=== PATIENT | female | born 1975 | race African-American/Black ===

== ENCOUNTER 2025-01-27 09:34 | Outpatient (CLI) | payer OTHER, SELFPAY ==
--- OUTSIDE RECORDS SUMMARY | 2025-01-27 10:19 | XMS_ITS | Clinical Summary ---
Author Organization [facility] [employer] Address [address] [facility] [place] [address] Care Team Providers Care Die Cast Technician Name Role Phone Pedro Cavazos MD Primary Care Provider [phone] Source Comments [facility]-audrain medical center Affiliates and Associated Physician Practices is amultiple site organization consisting of ambulatory clinics and hospital sitesin [place], [place], [place] and [place]. This disclosure is being madepursuant to the Care Everywhere program and may not contain all information available regarding this patient. Last updated 18.[facility] [employer] Allergies Active Allergy Reactions Criticality Noted Date Comments Lidocaine Anaphylaxis High 11/13/2014 Medications * Be aware that medications may not be up to date on this document. Alwaysverify current medications with the patient. amLODIPine (NORVASC) 10 MG tablet Take 10 mg by mouth once daily Active ferrous sulfate 325 (65 FE) MG tablet Take by mouth once daily Active calcium carbonate (CALCI-CHEW) 1250 (500 Ca) MG chew tablet Take 1 tablet by mouth once daily Active Cholecalciferol 25 MCG (1000 UT) Take 1,000 Units by mouth once daily Active Family History Medical History Relation Name Comments Cancer - Ovarian Mother Relation Name Status Comments Mother Social History Tobacco Use Types Packs/Day Years Used Date Smoking Tobacco: Never Smokeless Tobacco: Never Tobacco Cessation:Counseling Given: Yes Comments No Sex and Gender Information Value Date Recorded Sex Assigned at Not on file Legal Sex Female 5:19 PM CDT Gender Identity Not on file Sexual Orientation Not on file Last Filed Vital Signs Vital Sign Reading Time Taken Comments Blood Pressure 130/86 09/07/2020 5:53 PM CDT Pulse 61 09/07/2020 5:53 PM CDT Temperature 36.8 C (98.3 F) 09/07/2020 5:53 PM CDT Respiratory Rate 18 09/07/2020 5:53 PM CDT Oxygen Saturation 100% 09/07/2020 5:53 PM CDT Inhaled Oxygen Concentration - - Weight 85.7 kg (189 lb) 09/07/2020 5:53 PM CDT Height 165.1 cm (5' 5) 09/07/2020 5:53 PM CDT Body Mass Index 31.45 09/07/2020 5:53 PM CDT Plan of Treatment Health Maintenance Due Date Last Done Comments COLOGUARD (AGES 45-75) - COL ON CA SCREENING 1976 COLON MONITORING 1976 COLONOSCOPY - COLON CA SCREENING 1976 CT COLONOGRAPHY - COLON CA SCREENING 1976 Colorectal Cancer Screening 1976 FIT - COLON CA SCREENING 1976 FLEX SIG - COLON CA SCREENING 1976 LIPID TESTING 1976 MAMMOGRAM 1976 HIV SCREENING 1991 HEPATITIS C SCREENING 04/18/1994 DTAP/TDAP/TD VACCINES (1 - Tdap) 1995 HEPATITIS B VACCINE (1 of 3 - 19+ 3-dose series) 1995 SCREENING FOR DIABETES 09/07/2020 COVID-19 VACCINE (2 - 2023-2 5 season) 2024 08/31/2020 DEPRESSION SCREENING 06/05/2024 INFLUENZA VACCINE (#1) 2025 ZOSTER VACCINE (1 of 2) 2026 HIB VACCINE Aged Out No longer eligi ble based on patient's age to complete this topic HPV VACCINE Aged Out No longer eligi ble based on patient's age to complete this topic MENINGOCOCCAL (Group B) VACC INE SHARED DECISION-MAKING Aged Out No longer eligibl e based on patient's age to complete this topic MENINGOCOCCAL GROUPS A/C/Y/W VACCINE Aged Out No longer eligible b ased on patient's age to complete this topic PNEUMOCOCCAL VACCINE Aged Out No long er eligible based on patient's age to complete this topic Insurance [employer] Care Teams Die Cast Technician Relationship Specialty Start Date End Date Pedro Cavazos MD [address] [place] [address] [address] [place] [address] PCP - General Internal Medicine 09/07/20
--- OUTSIDE RECORDS SUMMARY | 2025-01-27 10:19 | XMS_ITS | Encounter Summary ---
Author Organization [facility] Address [address] [place] [address] Care Team Providers Care Cutter Finisher Name Role Phone Pedro Cavazos MD Primary Care Provider [phone] Encounter Details Date Type Department Care Team (Late st Contact Info) Description 11/01/[address] [address] Kenny Victor MD [address] [place] [id number] Social History Tobacco Use Types Packs/Day Years Used Date Smoking Tobacco: Never Alcohol Use Standard Drinks/Week Comments No 0 (1 standard drink = 0.6 oz pur e alcohol) Comments No Sex and Gender Information Value Date Recorded Sex Assigned at Not on file Legal Sex Female 2:47 PM LACE PINNER Gender Identity Not on file Sexual Orientation Not on file documented as of this encounter Plan of Treatment Not on file documented as of this encounter Visit Diagnoses Not on filedocumented in this encounter Care Teams Cutter Finisher Relationship Specialty Start Date End Date Pedro Cavazos MD [facility] [place] [address] PCP - General Internal Medicine 08/02/16 documented as of this encounter
--- OUTSIDE RECORDS SUMMARY | 2025-01-27 10:19 | XMS_ITS | Clinical Summary ---
Author Organization [facility] Address [address] [place] [address] Care Team Providers Care Double Back Operator Name Role Phone Pedro Cavazos MD Primary Care Provider [phone] Allergies Active Allergy Reactions Criticality Noted Date Comments Lidocaine Throat swelling 09/12/2017 Medications amlodipine 10 MG tablet Take 10 mg by mouth daily. Active ferrous sulfate, 65 mg elemental, 325 (65 FE) MG tablet Take 325 mg by mouth daily with breakfast. Active Cholecalciferol (VITAMIN D) 1000 UNIT tablet Take 1,000 Units by mouth daily. Active Cyanocobalamin (VITAMIN B 12) 100 MCG Lozenge Acti ve omeprazole 20 MG capsule Take 20 mg by mouth daily. Active aspirin 81 MG chewable tablet Chew 81 mg by mouth daily. Active Active Problems No known active problems Immunizations Immunization Administration Dates Next Due Tdap (Boostrix) 09/11/2020 Family History Medical History Relation Comments Hypertension Mother Relation Status Comments Father Alive Mother Alive Social History Tobacco Use Types Packs/Day Years Used Date Smoking Tobacco: Never Smokeless Tobacco: Never Alcohol Use Standard Drinks/Week Comments Yes 0 (1 standard drink = 0.6 oz pur e alcohol) socially Comments No Sex and Gender Information Value Date Recorded Sex Assigned at Not on file Legal Sex Female 3:07 AM CDT Gender Identity Not on file Sexual Orientation Not on file Last Filed Vital Signs Vital Sign Reading Time Taken Comments Blood Pressure 138/115 11/22/2021 7:07 PM CDT Pulse 108 11/22/2021 7:07 PM CDT Temperature 36.7 C (98.1 F) 11/22/2021 7:07 PM CDT Respiratory Rate 16 11/22/2021 7:0 7 PM CDT Oxygen Saturation 100% 11/22/2021 7:07 PM CDT Inhaled Oxygen Concentration - - Weight 82.4 kg (181 lb 10.5 oz) 11/22/2021 7:07 PM CDT Height 166.4 cm (5' 5.5) 11/22/2021 7:07 PM CDT Body Mass Index 29.77 11/22/2021 7:07 PM CDT Plan of Treatment Health Maintenance Due Date Last Done Comments Colorectal Cancer Screening Colonoscopy (10 Years) 1976 Annual Physical 1979 Hepatitis C 1994 Hepatitis B Vaccines (1 of 3 - 19+ 3-dose series) 1995 Mammogram Screening 2016 COVID-19 Vaccine (2023-2 5 season) 2024 03/05/2021, 10/01/2020, 08/31/2020 DTaP, Tdap and Td Vaccines ( 3 - Td or Tdap) 09/11/2030 09/11/2020, 09/11/2020, 11/13/2014 Meningococcal B Vaccine Aged Out No l onger eligible based on patient's age to complete this topic Meningococcal Vaccine Aged Out No rashard yun eligible based on patient's age to complete this topic Pneumococcal Vaccine: Pediatrics (0 to 5 Years) and At-Risk Patients (6 to 49 Years) Aged Out No longer eligible b ased on patient's age to complete this topic RSV Immunizations Under 20 Months Aged Out No longer eligible b ased on patient's age to complete this topic Insurance [facility] [employer]IM[employer]SEMENTS OF [place] Advance Directives Documents on File Type Date Recorded Patient Oil Lease Operator Expl anation Legal Documents 07/18/2022 4:13 PM COMPLET ED ALLSTATE BILLING REQ Care Teams Double Back Operator Relationship Specialty Start Date End Date Pedro Cavazos MD [facility] [facility] [address] [place] [address] PCP - General INTERNAL MEDICINE 09/12/17
--- OUTSIDE RECORDS SUMMARY | 2025-01-27 10:19 | XMS_ITS | Clinical Summary ---
Author Organization [facility] Address [address] [place] [address] Care Team Providers Care Teacher Resource Name Role Phone Kenny Victor MD Unavailable [phone] Chino Simmons MD Unavailable [phone] Nohemi Glass MD Primary Care Provider [phone] Allergies Active Allergy Reactions Criticality Noted Date Comments Lidocaine Anaphylaxis High 11/13/2014 Nsaids (Non-Steroidal Anti-Inflammatory Drug) Other (See comments) Low 07/29/2021 Bariatric surgery Medications ferrous sulfate 325 mg (65 mg of elemental iron) tabletIndication s:Iron Deficiency Anemia Take 1 tablet (325 mg total) by mouth nightly Active acetaminophen (TYLENOL) 500 mg tablet Take 2 tablets (1,000 mg total) by mouth every 6 (six) hours as needed for pain 60 tablet 0 Active calcium carbonate (TUMS) 500 mg calcium (1,250 mg) chewable tablet Take 1 tablet by mouth daily Active cholecalciferol (VITAMIN D-3) 25 mcg (1,000 unit) tablet Take 1 tablet (1,000 Units total) by mouth daily Active phentermine (ADIPEX-P) 37.5 mg tablet Take 1 tablet (37.5 mg total) by mouth daily 0 2 Active multivitamin capsule Take 1 capsule by mouth daily Active amLODIPine (NORVASC) 2.5 mg tabletIndication s:hypertension Take 1 tablet (2.5 mg total) by mouth every morning 90 tablet [address] (PROTONIX) 20 mg EC tabletIndication s:Stress Ulcer Prophylaxis Take 1 tablet (20 mg total) by mouth nightly 90 tablet 3 2 Active cyclobenzaprine (FLEXERIL) 10 mg tablet Take 10 mg by mouth 3 (three) times a day as needed 2 Active montelukast (SINGULAIR) 10 mg tablet 3 Active estradioL (CLIMARA) 0.0375 mg/24 hrIndications:Va somotor symptoms due to menopause Place 1 patch on the skin once a week for 7 days Patient needs appt for additional refills 4 patch 5 Active Active Problems Problem Noted Date Diagnosed Date COVID 07/28/2021 Iron deficiency anemia 12/11/2018 History of sleeve gastrectomy 11/22/2018 DDD (degenerative disc disease), cervical 2018 DDD (degenerative disc disease), lumbar 11/23/19 19 Sinusitis 05/31/2017 Gastroesophageal reflux disease without esophagi tis 11/14/2016 Heart murmur 09/14/2016 Hypertrophy of tonsils 09/14/2016 Vitamin D deficiency 05/15/2015 Leukopenia 05/15/2015 Cold hands 11/13/2014 Hypertension 11/13/2014 Obesity 11/13/2014 Resolved Problems Problem Noted Date Diagnosed Date Resolved Date Abnormal uterine bleeding (AUB) 04/03/2019 08/05/2019 Overview (04/03/2019): Added automatically from request for surgery [id number] Uterine fibroid 11/22/2018 08/05/2019 Immunizations Immunization Administration Dates Next Due DTaP 5 Pertussis 09/11/2020 Influenza, Quadrivalent, Spl it, Preservative Free, Intramuscular 05/25/2019(Deferred: Patient Refused - patient didn't want flu vaccine) Influenza, Trivalent, IM (MDV) 03/05/2021 Moderna SARS-CoV-2 Monovalen t Vaccination (12+ YRS) 03/05/2021,10/01/2020,08/31/2020 Tdap 09/11/2020,11/13/2014 Surgical History Surgery Date Site/Laterality Comments NE OCCLUSION FLP TUBE DEV VAG/SUPRAPUBIC APPR Oviductal Surgery Tubal Occlusion By Device - (Added by TW Conv) NE LIG/TRNSXJ FLP TUBE ABDL/VAG APPR UNI/BI Tubal Ligation - (Added by TW Conv) SLEEVE GASTROPLASTY 06/05/2016 - 06/04/2017 NE SOTO W/O FACETEC FORAMOT/DSC 06/06 VRT SGM CRV 06/05/2012 - 06/04/2013 Laminectomy Lumbar - Hardware in back (Added by TW Conv) TUBAL LIGATION 06/05/2004 - 06/04/2005 HYSTERECTOMY 06/05/2018 - 06/04/2019 LAPAROSCOPIC HYSTERECTOMY Medical History Medical History Date Comments Personal history of other sp ecified conditions History of chest pain - Stre ss test negative early 2014. (Added by TW Conv) Other cervical disc degenera tion, unspecified cervical region DDD (degenerative disc dis ease), cervical - (Added by TW Conv) Other intervertebral disc degeneration, lumbar region DDD (degenerative disc dis ease), lumbar - (Added by TW Conv) Personal history of other sp ecified conditions History of breast lump - Mahi mogram with U/S negative 06/20 (Added by TW Conv) Hypertrophy of uterus Enlarged u terus - Fibroids by u/s 06/20 (Added by TW Conv) Hypertension Abnormal uterine bleeding Heavy menses GERD (gastroesophageal reflux disease) Abnormal uterine bleeding (AUB) 04/03/2019 Added automatically from request for surgery [id number] Uterine fibroid 11/22/2018 Family History Medical History Relation Name Comments Hypertension Brother Heart failure Father Family history of congestive heart failure - (Added by TW Conv) Endometrial cancer Mother Heart failure Mother Family history of congestive heart failure - (Added by TW Conv) Hypertension Mother Family history of hypertension - (Added by TW Conv) Ovarian cancer Mother Obesity Sister Relation Name Status Comments Brother Alive Father Alive Mother Sister Social History Tobacco Use Types Packs/Day Years Used Date Smoking Tobacco: Never Smokeless Tobacco: Never Tobacco Cessation:Counseling Given: Not Answered Alcohol Use Standard Drinks/Week Comments Yes 2 (1 standard drink = 0.6 oz pur e alcohol) Humiliation, Afraid, Rape, and Kick questionnair e Answer Date Recorded Within the last year, have y ou been afraid of your partner or ex-partner? No 08/20/2019 Within the last year, have y ou been humiliated or emotionally abused in other ways by your partner or ex-partner? No Within the last year, have y ou been kicked, hit, slapped, or otherwise physically hurt by your partner or ex-partner? No 08/20/2019 Within the last year, have y ou been raped or forced to have any kind of sexual activity by your partner or ex-partner? No 08/20/2019 Social Connection and Isolation Panel Answer Date Recorded Frequency of Communication with Friends and Fami ly Not on file 08/20/2019 Frequency of Social Gatherings with Friends and Family Not on file 08/20/2019 Attends Congregational Services Not on file 08/19 Active Member of Clubs or Organizations Not on f ile 08/20/2019 Attends Club or Organization Meetings Not on shaheen e 08/20/2019 Are you , , di vorced, , never , or living with a partner? 08/20/2019 AUDIT-C Answer Date Recorded Q1: How often do you have a drink containing alc ohol? Monthly or less 08/30/2023 Average Number of Drinks Not on file 024 Q3: How often do you have si x or more drinks on one occasion? Never 08/30/2023 PHQ-2 Answer Date Recorded PHQ-2 Total Score (If total score is 3 or more points, staff should administer the PHQ-9) 0 07/29/2021 Exercise Vital Sign Answer Date Recorde d Days of Exercise per Week 3 days 2018 Minutes of Exercise per Session 50 min 04/26/2019 Comments No Sex and Gender Information Value Date Recorded Sex Assigned at Not on file Legal Sex Female 5:51 AM SEMICONDUCTOR PROCESSING TECHNICIAN Gender Identity Not on file Sexual Orientation Not on file Obstetrics History Para Term AB IAB SAB Ectopic Multiple Livin g Live Births 2 2 2 2 2 Date Outcome GA Total Labor Labor/2nd/3rd Weight Sex Type Anes PTL Nilda A1 A5 Name Clin Term F Vag-S pont Living Term M Vag-S pont Living Comments LMP: 04/30/2019 Last Filed Vital Signs Vital Sign Reading Time Taken Comments Blood Pressure 138/82 08/30/2023 4:32 PM CDT Pulse 72 11/25/2021 3:36 PM CDT Temperature 36.9 C (98.4 F) 11/25/2021 3:36 PM CDT Respiratory Rate 16 10/05/2021 3:24 PM CDT Oxygen Saturation 99% 11/25/2021 3:36 PM CDT Inhaled Oxygen Concentration - - Weight 83.5 kg (184 lb) 02/03/2024 10:44 AM CDT Height 165.1 cm (5' 5) 02/03/2024 10:44 AM CDT Body Mass Index 30.62 02/03/2024 10:44 AM CDT Plan of Treatment Health Maintenance Due Date Last Done Comments Colon Cancer Screening-Colonoscopy 1976 Hepatitis B Screening 1994 Depression Screening 07/29/2022 07/29/2021, 11/23/19 19 Covid-19 Vaccine ( season) 2024 03/05/2021, 10/01/2020, 08/31/2020 Regular Well Visit/Exam 18-64 08/29/2024 08/30/2023, 09/02/2021, 07/29/2021, Additional history exists Breast Cancer Screening-Mammogram 02/02/2025 02/03/2024, 06/25/2022, 09/12/2020, Additional history exists Influenza Vaccine (#1) 2025 03/05/2021 DTaP/Tdap/Td Vaccine (4 - Td or Tdap) 09/11/2030 09/11/2020, 09/11/2020, 11/13/2014 Cervical Cancer Screening Discontinued 05/15/2019, 06/2015 Hepatitis C Screening Completed 07/29/2021 Pneumococcal vaccine <65 Aged Out No longer eligible based on patient's age to complete this topic Procedures Procedure Name Priority Date/Time Associated Diagnosis Comments SCREENING MAMMOGRAM BILATERAL W RASHI Schedule Routine, Read Routine (OP Routine) 02/03/2024 10:51 AM CDT Encounter for screening mammogram for malignant neoplasm of breast HEPATITIS C ANTIBODY Routine 07/29/2021 1:15 PM SEMICONDUCTOR PROCESSING TECHNICIAN Preventative health care Need for hepatitis C screening test HM PAP SMEAR WITH HPV Routine 05/15/2019 from Last 3 Months or Most Recently Relevant to Health Maintenance Results * Screening Mammogram Bilateral W Rashi (02/03/2024 10:51 AM CDT) Anatomical Region Laterality Modality Breast Bilateral Mammography Impressions 02/06/2024 8:40 AM CDT BI-RADS ATLAS category (overall): 1 - Negative There is no mammographic evidence of malignancy. A 1 year screening mammogram is recommended. The patient has been or will be contacted. We recommend annual screening mammography for women at average risk of breast cancer beginning at age 40, based on guidelines of the [employer] (ACR Practice Parameter for the Performance of Screening and Diagnostic Mammography) and [employer]. For women with and elevated risk of breast cancer, please refer to the ACR Practice Parameter for specific screening recommendations. The patient will be entered into a reminder system with a target due date of 1 year for her next screening exam. Narrative 02/06/2024 8:40 AM CDT Screening Mammogram Bilateral W Rashi: 02/03/24 The study was acquired using full field digital technology and interpreted from soft copy. 2D digital mammographic views, as well as 3D digital tomosynthesis were performed in the CC and MLO projections. CLINICAL: Encounter for screening mammogram for malignant neoplasm of breast. No relevant medical history has been documented for this patient. No known family history of breast cancer. COMPARISONS: 08/18/2022 Diagnostic Mammogram Left W Rashi 06/25/2022 Screening Mammogram Bilateral W Rashi 09/12/2020 Screening Mammogram Bilateral W Rashi 07/12/2019 Screening Mammogram Bilateral W Rashi 09/18/2017 Screening Mammogram 2D Bilateral 07/01/2015 DIAGNOSTIC MAMMOGRAM BILATERAL W RASIH 07/01/2015 US Breast Limited BREAST TISSUE: There are scattered areas of fibroglandular density. FINDINGS: No suspicious masses, suspicious calcifications, or other suspicious findings are seen within either breast. There has been no suspicious change. Nohemi Glass MD IMG MAMMO PROCEDURES Final Result * Hepatitis C antibody (07/29/2021 1:15 PM SEMICONDUCTOR PROCESSING TECHNICIAN) Hep C Ab Nonreactive Nonreactive [facility] Comment:Antibodies to HCV no t detected. Does NOT exclude the possibility of recent exposure to HCV. Blood 07/29/2021 1:15 PM SEMICONDUCTOR PROCESSING TECHNICIAN 07/29/2021 3:44 PM SEMICONDUCTOR PROCESSING TECHNICIAN Pedro Cavazos MD LAB MICROBIOLOGY - GENER AL ORDERABLES Edited Result - Final [facility] Department [place] [address] * PAP SMEAR WITH HPV (05/15/2019) Pap smear Normal Historical Provider HEALTH MAINTENANCE Final Result from Last 3 Months or Most Recently Relevant to Health Maintenance Insurance [place] [id number] [place] [address] [place] [address] [employer] - [place] [id number] Advance Directives For more information, please contact: [phone] * Full Code (Latest Code Status on File) Date Activated Date Inactivated Comments 05/24/2019 5:20 PM 05/25/2019 6:29 PM Care Teams Teacher Resource Relationship Specialty Start Date End Date Nohemi Glass MD [address] [facility] [address] [place] [address] PCP - General Internal Medicine 12/14/22 Kenny Victor MD Referring Physician General Surgery 11/22/18 Chino Simmons MD [address] [facility] [id number] [place] [address] Consulting Physician Obstetrics and Gynecology 09/26/20
--- OUTSIDE RECORDS SUMMARY | 2025-01-27 10:19 | XMS_ITS | Clinical Summary ---
Author Organization [facility] Address [address] [place] [address] Phone Care Team Providers Care Interior Decorator Painting Name Role Phone Pedro Cavazos MD Primary Care Provider [phone] [phone] Allergies Active Allergy Reactions Criticality Noted Date Comments Lidocaine Anaphylaxis High 08/02/2016 Medications amLODIPine (NORVASC) 2.5 mg tablet Take 2.5 mg by mouth daily. Active ondansetron (ZOFRAN ODT) 4 mg Tablet, Rapid DissolveIndicati ons:nauesa Place 1 Tablet (4 mg) under tongue every 6 hours as needed for Nausea/Emes is. 10 Tablet 11/15/2016 1:21 PM CDT 11/15/2016 Active HYDROcodone-acet aminophen (HYCET) 7.5-325 mg/15 mL SolutionIndicati ons:pain Take 15 mL by mouth every 6 hours as needed for Pain, Severe (severe pain 5-10). Max Daily Amount: 60 mL 360 mL 11/15/2016 Active Active Problems Problem Noted Date Diagnosed Date Post-operative nausea and vomiting 11/15/2016 Post-op pain 11/15/2016 Gastroesophageal reflux disease without esophagi tis 11/14/2016 Recurrent major depressive disorder, in full rem ission 11/14/2016 Family History Medical History Relation Name Comments Hypertension Father Hypertension Mother Relation Name Status Comments Father Mother Social History Tobacco Use Types Packs/Day Years Used Date Smoking Tobacco: Never Alcohol Use Standard Drinks/Week Comments No 0 (1 standard drink = 0.6 oz pur e alcohol) Comments No Sex and Gender Information Value Date Recorded Sex Assigned at Not on file Legal Sex Female 2:47 PM BEESWAX BLEACHER Gender Identity Not on file Sexual Orientation Not on file Last Filed Vital Signs Vital Sign Reading Time Taken Comments Blood Pressure 140/82 11/15/2016 3:50 PM CDT Pulse 60 11/15/2016 11:45 AM CDT Temperature 36.6 C (97.8 F) 11/15/2016 11:45 AM CDT Respiratory Rate 16 11/15/2016 11:45 AM CDT Oxygen Saturation 100% 11/15/2016 11:45 AM CDT Inhaled Oxygen Concentration - - Weight 117.9 kg (260 lb) 11/15/2016 5:00 AM CDT Height 165.1 cm (5' 5) 11/14/2016 2:30 PM CDT Body Mass Index 43.27 11/14/2016 2:30 PM CDT Plan of Treatment Health Maintenance Due Date Last Done Comments DTAP/TDAP/TD VACCINES (1 - Tdap) 1995 HEPATITIS B VACCINES (1 of 3 - 19+ 3-dose series) 04/05 HPV/Cotest (21-29) 1997 CERVICAL CANCER SCREENING 2006 HPV/Cotest (30-65) 2006 PAP SMEAR 2006 BREAST CANCER SCREENING 2016 COLORECTAL SCREENING 2021 Colorectal Cancer Screening 2021 FIT-DNA Q 3 years 2021 FIT/FOBT Q 1 year 2021 Flex Sig/CT Colonography Q 5 years 2021 INFLUENZA VACCINE (#1) 2025 Medical Devices Implanted Type Area Resource Analyst Device Identifier Shelf Expiration Date Model / Serial / Lot Seamguard Endogia 60 Blck [id number] - [id number] Implanted:Qty : 2 on 11/14/2016 by Kenny Victor MD at [facility] Biological N/A: Stomach [employer] 05/04/2019 [id number] / / [id number] Seamguard Endogia 60 Prpl [id number] - [id number] Implanted:Qty : 2 on 11/14/2016 by Kenny Victor MD at [facility] Biological N/A: Stomach [employer] 05/04/2019 [id number] / / [id number] Lumbar Cage Insurance [facility] OPTIONS PPO [id number] [employer] O OPEN ACCESS RX OPTUM RX Member Subscriber Plan / Payer (Ef fective for All Dates) Name:Mohini Waterman Relation to Subscriber:Self Name:Mohini Waterman Payer ID:Not on file Group ID:[facility] Type:RX Commercial Address: [address] Advance Directives For more information, please contact: [phone] * Full Code (Latest Code Status on File) Date Activated Date Inactivated Comments 11/14/2016 2:35 PM 11/15/2016 6:29 PM * Full Code Date Activated Date Inactivated Comments 11/14/2016 9:29 AM 11/14/2016 2:35 PM * Full Code Date Activated Date Inactivated Comments 08/05/2016 8:38 AM 08/05/2016 12:55 PM Care Teams Interior Decorator Painting Relationship Specialty Start Date End Date Pedro Cavazos MD [address] [place] [address] PCP - General Internal Medicine 08/02/16
--- OUTSIDE RECORDS SUMMARY | 2025-01-27 10:19 | XMS_ITS | Clinical Summary ---
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 Gender Identity Not on file Sexual Orientation Not on file Plan of Treatment Health Maintenance Due Date Last Done Comments Hepatitis C Virus (HCV) Screening 1976 Hepatitis B Immunization (1 of 3 - 19+ 3-dose series) 1995 Pap Smear 1997 Cervical Cancer Screening (CCS) 2006 HPV/Cotest 2006 Cologuard 2021 Colonoscopy 2021 Colorectal Cancer Screening 2021 Immunochemical Fecal Occult Blood 2021 SARS-COV-2 Immunization ( season) 2024 04/21/2021, 09/28/2020, 08/31/2020 Influenza Immunization (#1) 2025 04/21/2021 Respiratory Syncytial Virus (RSV) Immunization (Adult) (1 - 1-dose 75+ series) 2051 DTaP/Tdap/Td Immunization Discontinued 09/11/2020 TdaP Immunization Completed 09/11/2020 Human Papillomavirus (HPV) Immunization Aged Out No longer eligible based on patient's age to complete this topic Meningococcal Immunization (ACWY) Aged Out No longer eligible based on patient's age to complete this topic Pneumococcal Immunization Combined Aged Out No longer eligible based on patient's age to complete this topic Rotavirus Immunization Aged Out No lo nger eligible based on patient's age to complete this topic
[2025-01-27 10:29] LABS: Hematocrit 35.1 % (37.0-47.0); Hemoglobin 11.5 g/dL (12.0-15.0); Mean Corpuscular HGB Conc 32.8 g/dl (32-36); Mean Corpuscular Hemoglobin 32.9 pg (26-34); Mean Corpuscular Volume 100.3 fl (80-100); Platelet Count Result 168 k/mm3 (150-375); Red Blood Count 3.50 M/mm3 (4.2-5.4); White Blood Count 2.8 K/mm3 (4.5-10.0)
[2025-01-27 10:53] LABS: Iron 102 ug/dL (37-170)
[2025-01-27 10:57] LABS: Albumin Level 3.9 g/dL (3.5-5.1); Anion Gap 5 mmol/L (4-12); Blood Urea Nitrogen 18 mg/dL (7-17); Calcium 8.9 mg/dL (8.4-10.2); Carbon Dioxide 28 mmol/L (22-30); Chloride 105 mmol/L (98-107); Estimated Glomerular Filt Rate > 60; Glucose 96 mg/dL (65-110); Potassium 3.9 mmol/L (3.4-5.0); Sodium 138 mmol/L (137-145)
[2025-01-27 11:04] LABS: Prealbumin 36.7 mg/dL (17.6-36.0)
== END 2025-01-27 09:35 | disposition home or self-care (01) ==
PROVIDERS: PCP Internal Medicine; Visit Provider Surgery Plastic and Reconstructive Surgery
DX: R63.4 Abnormal weight loss (principal)
CPT/HCPCS: 36415; 80048; 82040; 83540; 84134; 85027

== ENCOUNTER 2025-04-11 01:00 | Day surgery (SDC) | payer OTHER, SELFPAY ==
--- NOTE | 2025-04-07 09:27 | SUR.PREOP ---
[facility] has started construction of its new state of the art ER which will open Spring 2026. With this, we anticipate parking may be a challenge for some our surgical patients and families. Parking spaces are limited but are available for all Surgical, obstetrics, and ER patients sharing this lot. If you arrive and find you are having a hard time finding a parking space, please note that we understand the challenges, please drive around the hospital and park near Hospital Entrance 1. When you enter this entrance, you can ask a volunteer to direct or take you back to the surgical waiting area to check in. We appreciate everyone?s understanding of these expected challenges while we build for your future. Report to the Outpatient Waiting Room, entrance under the green pavilion located off [address], at time __6AM__ on date _04/11/25_. Planned Procedure Time: _730AM__. Time changes happen often and if your time is changed the preop area will call you the afternoon before. - You and your visitor will be asked to self-screen and do not enter if you have any COVID symptoms. Please call surgeon if you need to reschedule. - A mask is optional within the hospital at this time. Patients may have clear liquids (water, carbonated beverages, clear teas, apple juice) until 3 hours prior to surgery with a maximum of 20 ounces. - No food from midnight until time of surgery and no smoking, or chewing tobacco (or any form of nicotine). No chewing gum, candy or mints. . Take only the following medications with a SIP of water on the morning of surgery: __Amlodipine__ DO NOT STOP ANY OF YOUR OTHER PRESCRIPTION MEDICATIONS PRIOR TO SURGERY EXCEPT THE FOLLOWING Hold all vitamins and supplements for 3 days per anesthesiologist. Medications to hold per physician __tirezepatide x10 days__ Date to take last dose of vitamins-now 04/07/25__ Please no make-up, nail sami, hairspray, perfume, deodorant, or body powder the day of surgery.? No jewelry (including any body piercings) or valuables the day of surgery, leave them at home.? Please take a shower or bath the night before, or the morning of, surgery with an antibacterial soap.? Wear comfortable, loose fitting clothing.? - Jewelry must be removed prior to entering the operating room.? Rings and piercings that are not removed may be cut off. - The hospital will not accept responsibility for valuables.? - Please leave all valuables, including medications, at home the day of surgery. If you are going home after surgery, a licensed recycling collections driver must drive you home.? - NO public transportation without another adult if you receive anesthesia. - We recommend that an adult stay with you for 24 hours following discharge. - We also recommend that you do not drive, make important decision, drink alcoholic beverages, or take any drugs that were not prescribed by your health care provider for at least 24 hours after your discharge time. For Pediatric surgeries, we recommend two adults accompany the child home. Follow any additional instructions given to you from your surgeon. Telephone instructions given to _Mohini_and asked if any additional questions and then verbalized understanding. Patient advised to call surgeon office or pre surgery nurse liaison [phone] if any additional questions.
[2025-04-07 09:36] VITALS: BMI 31.6
[2025-04-11] VITALS (10 sets, daily range): BP systolic 111–155; BP diastolic 66–89; PULSE 64–96; RESP 10–16; TEMP 36.2–36.5; O2SAT 92–100; BMI 31.5
--- OUTSIDE RECORDS SUMMARY | 2025-04-11 01:02 | XMS_ITS | Encounter Summary ---
Author Organization [facility] Address [address] [place] [address] Care Team Providers Care Sterile Processing Technologist Name Role Phone Pedro Cavazos MD Primary Care Provider [phone] Encounter Details Date Type Department Care Team (Late st Contact Info) Description 11/01/[address] [address] [place] [address] [facility] [address] [place] [address] Social History Tobacco Use Types Packs/Day Years Used Date Smoking Tobacco: Never Alcohol Use Standard Drinks/Week Comments No 0 (1 standard drink = 0.6 oz pur e alcohol) Comments No Sex and Gender Information Value Date Recorded Sex Assigned at Not on file 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
--- OUTSIDE RECORDS SUMMARY | 2025-04-11 01:02 | XMS_ITS | Data Portability ---
Author Organization [facility] OFF[facility] Address [address] [place] [address] Care Team Providers Care Cuffing Machine Operator Name Role Phone DONNA NDIAYE Primary Care Provider [phone] Assessment No assessment recorded. Plan of Treatment Reminders Order Date Submit Date Provider Last Modified By Organization Details Last Modified Time Details Appointments ESTABLISH ED PATIENT DETAILED 2024 08:45A M Devon De La Cruz i, MD Not available Not available Not available Lab None recorded. Referral None recorded. Procedures None recorded. Surgeries None recorded. Imaging electroca rdiogram 2024 025 Not available 10/29/2024 09:12:23 electroca rdiogram 2024 025 Not available 08/22/2024 14:36:05 Medication Orders rosuvasta tin 10 mg tablet 2024 025 [id number], [address], [address], 10/12/2024 09:58:18 Patient TargetsNo targets recorded. Patient InstructionsNo instructions recorded. Reason for Referral None Reported. Results Created Date Observation Date Name Description Value Unit Range Abnormal Flag Note LastModifiedBy Organization Detail LastModifiedTime 07/29/1901/05/2024 koki galeano am No observ ation record ed. [email or web address] Not Available 2024 17:46:04 07/29/19 25 12/16/2022 , luisito martinez s, lower extre mity No observ ation record ed. [email or web address] Not Available 2024 17:47:59 08/08/19 25 08/06/2024 elect senthil monterogr am No observ ation record ed. [email or web address] Not Available 2024 10:12:06 08/27/19 25 08/22/2024 US, echoc ardio gram No observ ation record ed. [email or web address] [facility] [address], [place], [address], 10/24/2024 10:12:02 10/10/19 25 09/28/2024 exerc ise stres s test No observ ation record ed. [email or web address] Not Available 2024 14:31:04 Result Notes None recorded. Problems Name Problem SNOMED Code Status Onset Date Resolution Date Notes Provider Name and Address Organization Details Recorded Time Electrocardiog sp abnormal 363681132 Active 2022 Hector Alaniz null, [place] - [facility] 07:33:25 Benign hypertension 34672119 Active 2022 Young Mesto null, [place] - [facility] 07:42:45 Family history of diabetes mellitus 682378842 Active 2022 Hector Mesto [place], [place] - [facility] 07:33:25 Chronic constipation 216834262 Active 2022 Young Mesto [place], [place] - [facility] 07:33:25 Gastroesophage al reflux disease without esophagitis 575962456 Active 2022 Hector Mesto [place], [place] - [facility] 07:33:25 Iron deficiency 14616873 Active 2022 Yuong Mesto null, [place] - [facility] 07:33:25 Family history of malignant neoplasm of ovary 599264159 Active 2022 Young Mesto null, [place] - [facility] 07:33:25 History of bariatric surgical procedure 055072372 Active 2022 Hector Mesjessica null, [place] - [facility] 07:33:25 Vitamin D deficiency 73052553 Active 2022 [facility] 07:33:25 Body mass index 30+ - obesity 614892225 Active 2022 [facility] 07:33:25 Problem Notes None recorded. Procedures Surgical History Date Name Laterality Status Provider Name and Address Organization Details Recorded Time 06/05/19 16 laparoscopic sleeve gastrectomy completed [facility] 07/29/2024 07:42:03 06/05/19 13 lumbar spinal fusion completed [facility] 07/29/2024 07:42:13 Partial hysterectomy completed [facility] 07/29/2024 07:33:54 ligation of fallopian tube completed [facility] 07/29/2024 07:34:07 Imaging Results None recorded. Procedure Notes None recorded. Medical Equipment None Reported. Allergies Allergen ID Allergen Name Allergen Category Reaction Reaction Severity Criticality Documentation Date Start Date Code Code System Note Provider Name and Address Organization Details Recorded Time 79060 lidocaine medicatio n other Not available Not available 07/29/2024 6387 RxNorm [facility] 07:33:11 Medications Name Sig Start Date Stop Date Status Note LastModified by Organization Details LastModified Time cyclobenzap rine 10 mg tablet 07/30 completed Not Available Not Available Not Available Iron (ferrous sulfate) 325 mg (65 mg iron) tablet Take 1 tablet every day by oral route. active Not Available Not Available No t Available azithromyci n 250 mg tablet TAKE 2 TABLETS (500 MG) BY ORAL ROUTE ONCE DAILY FOR 1 DAY THEN 1 TABLET (250 MG) BY ORAL ROUTE ONCE DAILY FOR 4 DAYS 07/30 completed Not Available Not Available Not Available amlodipine 2.5 mg tablet TAKE 1 TABLET BY MOUTH EVERY DAY active Not Available Not Available No t Available phentermine 37.5 mg tablet Take 1 tablet every day by oral route. 10/11 completed Not Available Not Available Not Available pantoprazol e 20 mg tablet,kary yed release TAKE 1 TABLET BY MOUTH EVERY DAY active Not Available Not Available No t Available benzonatate 100 mg capsule Take 1 capsule 3 times a day by oral route. 07/30 completed Not Available Not Available Not Available folic acid 1 mg tablet TAKE 1 TABLET BY MOUTH EVERY DAY active Not Available Not Available No t Available montelukast 10 mg tablet Take 1 tablet every day by oral route. 07/30 completed Not Available Not Available Not Available ergocalcife rol (vitamin D2) 1,250 mcg (50,000 unit) capsule TAKE 1 CAPSULE BY MOUTH ONE TIME PER WEEK active Not Available Not Available No t Available fluticasone propionate 50 mcg/actuati on nasal spray,suspe nsion [place] 1 spray every day by intranasa l route. 07/30 completed Not Available Not Available Not Available estradiol 0.0375 mg/24 hr weekly transdermal patch APPLY 1 PATCH ONE TIME PER WEEK active Not Available Not Available No t Available rosuvastati n 10 mg tablet TAKE 1 TABLET BY MOUTH EVERY DAY active Not Available Not Available No t Available Senexon-S 8.6 mg-50 mg tablet TAKE 2 TABLETS BY MOUTH EVERY DAY 07/30 completed Not Available Not Available Not Available Qsymia 11.25 mg-69 mg capsule, extended release TAKE 1 CAPSULE BY MOUTH EVERY DAY FOR 14 DAYS 04/12 completed Not Available Not Available Not Available Qsymia 3.75 mg-23 mg capsule, extended release TAKE 1 CAPSULE BY MOUTH EVERY DAY FOR 14 DAYS 10/24 completed Not Available Not Available Not Available Qsymia 15 mg-92 mg capsule, extended release Take 1 capsule every day by oral route. 07/30 completed Not Available Not Available Not Available Qsymia 7.5 mg-46 mg capsule, extended release TAKE 1 CAPSULE BY MOUTH EVERY DAY 01/10 completed Not Available Not Available Not Available Vitals Date Recorded Body height Body mass index (BMI) Body weight Heart rate Respiratory rate Oxygen saturation Oxygen saturation in Arterial blood by Pulse oximetry Systolic And Diastolic Provider Name and Address Organization Details Last Updated DateTime 165.1 cm 32 kg/m2 12393.7 4 g 82 /min 18 /min 97 % 97 % 132/80 mm[Hg] Landon Blakely [place] - [facility] 18:16:56 Date Recorded Body height Body mass index (BMI) Body weight Heart rate Oxygen saturation Oxygen saturation in Arterial blood by Pulse oximetry Systolic And Diastolic Provider Name and Address Organization Details Last Updated DateTime 165.1 cm 33.1 kg/m2 64165.8 g 99 /min 65 % 65 % 130/80 mm[Hg] Melinda Fitch [place] - [facility] 09:47:24 Social History Question Answer Notes LastModified by Organizat ion Details LastModified Time What Is Your Relationship Status? [email or web address] Information not available 07/29/2024 Sex: Unknown Functional Status None recorded. Mental Status None recorded. Family History Relationship Description Onset Age of this Age Resolved Age Notes LastModified by Organization Details LastModified Time Mother Malignant neoplasm of ovary 63 [email or web address] Not available 2024 07:36:24 Medical History Condition Response Hypertension Y Gynecological HistoryNo gynecological history recorded. Obstetrics History GPAL:G 0 P 0 0 0 0 Past Encounters Encounter ID Performer Location Encounter Start Date Encounter Closed Date Diagnosis/Indication Diagnosis SNOMED-CT Code Diagnosis ICD10 Code Diagnosis IMO Codes Diagnosis Note [id number] Devon Tyler MD [place] [facility] [address] [place] [address] 07/30/2024 18:05:14 07/30/2024 18:33:11 Essential hypertension 84002828 I10 Atypical chest pain 1025 35357 R07.89 Lexiscan Myoview stress test, pt can not walk. Has known coronary artery disease, with atypical symptoms now Electrocar diogram abnormal 785575478 R94.31 Treadmill Myoview Stress test, has high [place] Risk score. Has Known CAD, or CAD risk equivalent . To look for any ischemia. Tricuspid valve regurgitation 127539348 I07.1 Obtain echo to evaluate for structural /functiona l disease. [id number] Devon Tyler MD [place] [facility] [place] [address] 10/12/2024 09:37:03 10/12/2024 10:00:58 Essential hypertension 80603812 I10 Atypical chest pain 1025 21943 R07.89 Had Positive stress test on 09/28/24 with Normal LV systolic function. Reversible defect small in size consistent with ischemia in inferior -septal area. Exercise tolerance: Average. LVEF: 54%. Maximal medical treatment for now Electrocar diogram abnormal 574973459 R94.31 Treadmill Myoview Stress test, has high [place] Risk score. Has Known CAD, or CAD risk equivalent . To look for any ischemia. Tricuspid valve regurgitation 503330987 I07.1 MIld Dyslipidemia 449756601 E 78.5 783404 Preprocedu ral examination done 1695036451 76467 Z01.818 754714 There is no cardiac contraindi cation for the procedure. The planned procedure would be within acceptable risk. Health Concerns Section Related Observation LastModified by Organization Detai ls LastModified Time None Recorded Concern Status LastModified by Organization Details LastModified Time None Recorded Advance Directives Directive None Recorded Payers Insurance Date Sequence Insurance Name Policy Number Policy Manrique Covered Member ID Manrique Member ID Guarantor Name 01/02/2025 1 [id number] Mohini Corbett [id number] Mohini Corbett Notes Date Note Type Note Provider Name and Address Organization Details Recorded Time 07/30/2024 text/html 07/30/24CC: dyspnea on exertionMohini CORBETT is a 49 years-old -[place] Female with h/o was referred for cardiac evaluation Today reports:Denies chest pain.Denies shortness of breath at rest. Has mild dyspnea on exertion.No orthopnea. No PNDs.Denies heart palpitations.Denies dizziness. Denies syncope or near syncope.No ankle or leg edema.No major bleeding events.No reported side effects from medications. Taking medications as prescribed with no missed doses.Denies snoring, daytime somnolence and AM headache.*Last LDL was done on .Pt takes. AGUEDA Schultz - [facility] 08/01/2024 15:11:13 10/12/2024 text/html 10/12/24CC : Cardiac follow up, Positive stress testMohini CORBETT is a 49 years-old -[place] Female with h/o Hypertension, and family history of diabetes mellitus is here for follow up with ECHO and stress test results. She was last seen in the clinic on 07/30/24, since then she had Positive stress test on 09/28/24 with Normal LV systolic function. Reversible defect small in size consistent with ischemia in inferior -septal area. Exercise tolerance: Average. LVEF: 54%. She denies ER visits and hospitalizations since she was last seen. Today reports:no ccDenies chest pain.Denies shortness of breath at rest. Has mild dyspnea on exertion.No orthopnea. No PNDs.Denies heart palpitations.Denies dizziness. Denies syncope or near syncope.No ankle or leg edema.No major bleeding events.No reported side effects from medications. Taking medications as prescribed with no missed doses.Denies snoring, daytime somnolence and AM headache.*Last LDL was 94 done on 12/28/23.Pt dose not takes any statins. *Had Positive stress test on 09/28/24 with Normal LV systolic function. Reversible defect small in size consistent with ischemia in inferior -septal area. Exercise tolerance: Average. LVEF: 54%. *Had ECHO on 08/22/24:LV chamber size is normal, LVEF 55-60%, the mitral valve leaflet is mildly thickened, there is mild mitral regurgitation. Previously:*EKG 07/30/24: Sinus rhythm, P; normal, QRS; normal ST-T; normal, conclusion: normal ECG. Devon Tyler MD [address] [place], [address], [facility] - [facility] 10/12/2024 09:58:39 OBGyn Episode No OBEpisode recorded.
--- OUTSIDE RECORDS SUMMARY | 2025-04-11 01:02 | XMS_ITS | Clinical Summary ---
Author Organization [facility] Address [address] [place] [address] Care Team Providers Care Trial Mgr Name Role Phone Pedro Cavazos MD Primary Care Provider [phone] Allergies Active Allergy Reactions Criticality Noted Date [...] 7:07 PM CDT Respiratory Rate 16 11/22/2021 7:07 PM CDT Oxygen Saturation 100% 11/22/2021 7:07 [...] series) 1995 Mammogram Screening 2016 COVID-19 Vaccine (2024-2 6 season) 2025 03/05/2021, 10/01/2020, 08/31/2020 Influenza Adult (#1) 2025 03/05/2021 DTaP, Tdap and Td Vaccines ( 3 - Td or Tdap) 09/11/2030 09/11/2020, 09/11/2020, 11/13/2014 Hepatitis A Vaccines Aged Out No long er eligible based on patient's age to complete this topic Meningococcal B Vaccine Aged Out No l [...] patient's age to complete this topic Insurance [facility] BLUE [facility] MEDICAL REIMBURSEMENTS OF [place] Advance Directives Documents on File Type Date Recorded Patient Shank Tapper Expl anation Legal Documents 07/18/2022 4:13 PM COMPLET ED ALLSTATE BILLING REQ Care Teams Trial Mgr Relationship Specialty Start Date End Date Pedro Cavazos MD [address] [place] [address] [address] [place] [address] PCP - General INTERNAL MEDICINE 09/12/17
--- OUTSIDE RECORDS SUMMARY | 2025-04-11 01:02 | XMS_ITS | Clinical Summary ---
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
--- OUTSIDE RECORDS SUMMARY | 2025-04-11 01:03 | XMS_ITS | Clinical Summary ---
Author Organization [facility] Address [address] [place] [address] Care Team Providers Care Labelling Machine Operator Name Role Phone Kenny Victor MD Unavailable [phone] Chino Simmons MD Unavailable [phone] Nohemi Glass MD Primary Care Provider [phone] Allergies Active Allergy Reactions Criticality Noted Date [...] Active Problems Problem Noted Date Diagnosed Date Preoperative clearance 04/09/2025 COVID 07/28/2021 Iron deficiency anemia 12/11/2018 History [...] (04/03/2019): Added automatically from request for surgery [id number] Uterine fibroid 11/22/2018 08/05/2019 Encounters Date Type Department Care Team Description 04/10/2025 Telephone [facility] Cardiology [address] [place] [address] Scotty Lopez MD 04/09/2025 12:15 PM SHEET PILE DRIVER OPERATOR Office Visit [facility] Cardiology at [address] [place] [address] Scotty Lopez MD Essential hypertension (Primary Dx); Preoperative clearance; Lipid screening from Last 3 Months Immunizations Immunization Administration Dates Next Due DTaP 5 Pertussis 09/11/2020 Influenza, Quadrivalent, Spl it, Preservative Free, Intramuscular 05/25/2019(Deferred: Patient Refused - patient didn't want flu vaccine) Influenza, Trivalent, IM (MDV) 03/05/2021 Moderna SARS-CoV-2 Monovalen t Vaccination (12+ YRS) 03/05/2021,10/01/2020,08/31/2020 Tdap 09/11/2020,11/13/2014 Surgical History Surgery Date Site/Laterality Comments UT OCCLUSION FLP TUBE DEV VAG/SUPRAPUBIC APPR Oviductal Surgery Tubal Occlusion By Device - (Added by TW Conv) UT LIG/TRNSXJ FLP TUBE ABDL/VAG APPR UNI/BI Tubal Ligation - (Added by TW Conv) SLEEVE GASTROPLASTY 06/05/2016 - 06/04/2017 UT SOTO W/O FACETEC FORAMOT/DSC 06/06 VRT SGM [...] 04/03/2019 Added automatically from request for surgery [id number] Uterine fibroid 11/22/2018 Family History Medical History [...] and Family Not on file 08/20/2019 Attends Bahai Services Not on file 08/19 Active Member [...] on file Legal Sex Female 5:51 AM SHEET PILE DRIVER OPERATOR Gender Identity Not on file Sexual Orientation [...] Sign Reading Time Taken Comments Blood Pressure 132/80 04/09/2025 12:14 PM SHEET PILE DRIVER OPERATOR Pulse 76 04/09/2025 12:14 PM SHEET PILE DRIVER OPERATOR Temperature 36.9 C (98.4 F) 11/25/2021 3:36 PM CDT Respiratory Rate 16 10/05/2021 3:24 PM CDT Oxygen Saturation 98% 04/09/2025 12:14 PM SHEET PILE DRIVER OPERATOR Inhaled Oxygen Concentration - - Weight 86.2 kg (190 lb) 04/09/2025 12:14 PM SHEET PILE DRIVER OPERATOR Height 165.1 cm (5' 5) 04/09/2025 12:14 PM SHEET PILE DRIVER OPERATOR Body Mass Index 31.62 04/09/2025 12:14 PM SHEET PILE DRIVER OPERATOR Plan of Treatment Health Maintenance Due Date Last Done Comments Colon Cancer Screening-Colonoscopy 1976 Hepatitis B Screening 1994 Depression Screening 07/29/2022 07/29/2021, 11/23/19 19 Regular Well Visit/Exam 18-64 08/29/2024 08/30/2023, 09/02/2021, 07/29/2021, Additional history exists Breast Cancer Screening-Mammogram 02/02/2025 02/03/2024, 06/25/2022, 09/12/2020, Additional history exists Covid-19 Vaccine ( season) 2025 03/05/2021, 10/01/2020, 08/31/2020 Influenza Vaccine (#1) 2025 03/05/2021 DTaP/Tdap/Td Vaccine (4 - Td or Tdap) 09/11/2030 09/11/2020, 09/11/2020, 11/13/2014 Cervical Cancer Screening Discontinued 05/15/2019, 06/2015 Hepatitis C Screening Completed 07/29/2021 Pneumococcal vaccine <65 Aged Out No longer eligible based on patient's age to complete this topic Procedures Procedure Name Priority Date/Time Associated Diagnosis Comments ECG 12-LEAD Routine 04/09/2025 12:16 PM SHEET PILE DRIVER OPERATOR Essential hypertension POCT LIPID PANEL Routine 04/09/2025 11:3 0 AM SHEET PILE DRIVER OPERATOR Lipid screening SCREENING MAMMOGRAM BILATERAL W RASHI Schedule Routine, Read Routine (OP Routine) 02/03/2024 10:51 AM CDT Encounter for screening mammogram for malignant neoplasm of breast HEPATITIS C ANTIBODY Routine 07/29/2021 1:15 PM SHEET PILE DRIVER OPERATOR Preventative health care Need for hepatitis C screening test HM PAP SMEAR WITH HPV Routine 05/15/2019 from Last 3 Months or Most Recently Relevant to Health Maintenance Results * ECG 12 lead (04/09/2025 12:16 PM SHEET PILE DRIVER OPERATOR) Scotty Lopez MD ECG ORDERABLES Edited R esult - Final * POCT lipid panel (04/09/2025 11:30 AM SHEET PILE DRIVER OPERATOR) Cholesterol, POC 120 <200 MG/DL HDL, POC 68 >=40 mg/dL Triglycerides, POC 55 <=149 mg/dL LDL Cholesterol POC 40 <=129 mg/dL Chol/HDL Ratio, POC 1.8 NONE Non-HDL Cholesterol, POC 51 NONE mg/dL Cholesterol Total, POC 120 30 - 199 mg/dL Capillary blood 04/09/2025 1 1:30 AM SHEET PILE DRIVER OPERATOR Scotty Lopez MD POINT OF CARE TEST ORDER TOBI Final Result * Screening Mammogram Bilateral W Rashi (02/03/2024 [...] age 40, based on guidelines of the [employer] (ACR Practice Parameter for the Performance of Screening and Diagnostic Mammography) and [employer]. For women [...] 2D Bilateral 07/01/2015 DIAGNOSTIC MAMMOGRAM BILATERAL W RASHI 07/01/2015 US Breast Limited BREAST TISSUE: There are scattered areas of fibroglandular density. FINDINGS: No suspicious masses, suspicious calcifications, or other suspicious findings are seen within either breast. There has been no suspicious change. Nohemi Glass MD IMG MAMMO PROCEDURES Final Result * Hepatitis C antibody (07/29/2021 1:15 PM SHEET PILE DRIVER OPERATOR) Hep C Ab Nonreactive Nonreactive OCHOA SWANSON Comment:Antibodies to HCV no t detected. Does NOT exclude the possibility of recent exposure to HCV. Blood 07/29/2021 1:15 PM SHEET PILE DRIVER OPERATOR 07/29/2021 3:44 PM SHEET PILE DRIVER OPERATOR Pedro Cavazos MD LAB MICROBIOLOGY - GENER AL ORDERABLES Edited Result - Final [facility] Department [place] [address] * PAP SMEAR WITH HPV (05/15/2019) Pap smear Normal us Historical Provider MD HEALTH MAINTENANCE Final Result from Last 3 Months or Most Recently Relevant to Health Maintenance Insurance [place] [id number] [place] [id number] [place] [id number] THIRD CONSTITUTION PARTY LIABILITY - [place]IC [place] [id number] Advance Directives For more information, please contact: [phone] * Full Code (Latest Code Status on File) Date Activated Date Inactivated Comments 05/24/2019 5:20 PM 05/25/2019 6:29 PM Care Teams Labelling Machine Operator Relationship Specialty Start Date End Date Nohemi Glass MD [address] [facility] [address] [place] [address] PCP - General Internal Medicine 12/14/22 Kenny Victor MD Referring Physician General Surgery 11/22/18 Chino Simmons MD [address] [facility] [address] [phone] [place] [address] Consulting Physician Obstetrics and Gynecology 09/26/20
--- OUTSIDE RECORDS SUMMARY | 2025-04-11 01:03 | XMS_ITS | Clinical Summary ---
[facility] Organization [facility] Address [address] [place] [address] Phone Care Team Providers Care Dining Room Supervisor Name Role Phone Pedro Cavazos MD Primary Care Provider [phone] Allergies Active Allergy Reactions Criticality Noted Date [...] on file Legal Sex Female 2:47 PM PUBLICITY EXPERT Gender Identity Not on file Sexual Orientation [...] (#1) 2025 Medical Devices Implanted Type Area Shadowgraph Scale Operator Device Identifier Shelf Expiration Date Model / Serial / Lot Seamguard Endogia 60 Blck [id number] - [id number] Implanted:Qty : 2 on 11/14/2016 by Kenny Victor MD at [facility] Biological N/A: Stomach [employer] 05/04/2019 [id number] / / [id number] Seamguard Endogia 60 Prpl [id number] - [id number] Implanted:Qty : 2 on 11/14/2016 by Kenny Victor MD at [facility] Biological N/A: Stomach [employer] 05/04/2019 [id number] / / [id number] Lumbar Cage Insurance [facility] OPTIONS PPO [id number] [address] [facility] [place] [place] Address: [facility] [address] [place] [address] RX OPTUM RX Member Subscriber Plan / Payer (Ef fective for All Dates) Name:Mohini Waterman Relation to Subscriber:Self Name:Mohini Waterman Payer ID:Not on file Group ID:[facility] Type:RX Commercial Address: [address] Advance Directives For more information, please contact: [phone] * Full Code (Latest Code Status on File) Date Activated Date Inactivated Comments 11/14/2016 2:35 PM 11/15/2016 6:29 PM * Full Code Date Activated Date Inactivated Comments 11/14/2016 9:29 AM 11/14/2016 2:35 PM * Full Code Date Activated Date Inactivated Comments 08/05/2016 8:38 AM 08/05/2016 12:55 PM Care Teams Dining Room Supervisor Relationship Specialty Start Date End Date Pedro Cavazos MD [address] [place] [address] PCP - General Internal Medicine 08/02/16
--- OUTSIDE RECORDS SUMMARY | 2025-04-11 01:03 | XMS_ITS | Encounter Summary ---
Author Organization [facility] Address [address] [place] [address] Care Team Providers Care Elementary School Teacher'S Aide Name Role Phone Kenny Victor MD Unavailable [phone] Chino Simmons MD Unavailable [phone] Nohemi Glass MD Primary Care Provider [phone] Encounter Details Date Type Department Care Team (Late st Contact Info) Description 04/10/2025 Telephone [facility] Cardiology [address] [facility] [address] [place] [address] Scotty Lopez MD [address] [place] [address] Social History Tobacco Use Types Packs/Day Years Used Date Smoking Tobacco: Never Smokeless Tobacco: Never Alcohol Use Standard Drinks/Week Comments Yes 2 [...] and Family Not on file 08/20/2019 Attends Alevism Services Not on file 08/19 Active Member [...] on file Legal Sex Female 5:51 AM RELIGION DEPARTMENT CHAIR Gender Identity Not on file Sexual Orientation Not on file documented as of this encounter Miscellaneous Notes * Telephone Encounter - Morena Pompa RN - 04/10/2025 3:20 PM RELIGION DEPARTMENT CHAIR Niesha informed that per Dr Lopez, he reviewed the stress test results and it does not change his recommendation that patient is still cleared for surgery. Niesha verbalized understanding. GION DEPARTMENT CHAIR * Telephone Encounter - Morena Pompa RN - 04/10/2025 2:59 PM RELIGION DEPARTMENT CHAIR LM for Niesha that I have note seen stress test yet GION DEPARTMENT CHAIR * Telephone Encounter - Morena Pompa RN - 04/10/2025 11:12 AM RELIGION DEPARTMENT CHAIR Niesha from pre-op testing at is faxing patient previous stress test for MJF to review since he did not have it for patients appointment yesterday. Patient's surgery is scheduled for tomorrow GION DEPARTMENT CHAIR * Telephone Encounter - Flakita Casey - 04/10/2025 10:15 AM CST Niesha from [facility] called in and states that in September the patient had a positive stress test. She is requesting a call back to discuss everything with this patient. Please advise. Thank you. Contact : [phone] GION DEPARTMENT CHAIR documented in this encounter Plan of Treatment Not on file documented as of this encounter Visit Diagnoses Not on filedocumented in this encounter Care Teams Elementary School Teacher'S Aide Relationship Specialty Start Date End Date Nohemi Glass MD [address] [facility] [address] [place] [address] PCP - General Internal Medicine 12/14/22 Kenny Victor MD Referring Physician General Surgery 11/22/18 Chino Simmons MD [address] [facility] [address] [phone] [place] [address] Consulting Physician Obstetrics and Gynecology 09/26/20 documented as of this encounter
--- OUTSIDE RECORDS SUMMARY | 2025-04-11 01:03 | XMS_ITS | Clinical Summary ---
Author Organization [facility] Address [address] [place] [address] Care Team Providers Care Fur Glosser Name Role Phone Pedro Cavazos MD Primary Care Provider [phone] Source Comments [facility] Affiliates and Associated Physician Practices is amultiple site organization consisting of ambulatory clinics and hospital sitesin [place], [place], [place] and [place]. This disclosure is being madepursuant to the Care Everywhere program and may not contain all information available regarding this patient. Last updated 18.[facility] Allergies Active Allergy Reactions Criticality Noted Date [...] 3-dose series) 1995 SCREENING FOR DIABETES 09/07/2020 DEPRESSION SCREENING 06/05/2024 COVID-19 VACCINE (2 - 2024-2 6 season) 2025 08/31/2020 INFLUENZA VACCINE (#1) 2025 ZOSTER VACCINE (1 [...] age to complete this topic Insurance [employer] Care Teams Fur Glosser Relationship Specialty Start Date End Date Pedro Cavazos MD [address] [place] [address] [address] [address] PCP - General Internal Medicine 09/07/20
--- OUTSIDE RECORDS SUMMARY | 2025-04-11 01:03 | XMS_ITS | Data Portability ---
Author Organization [facility], [employer] Address [address] [place] [address] Care Team Providers Care Supervisor P[employer] Name Role Phone NOHEMI NDIAYE Primary Care Provider [phone] Assessment Encounter Date Assessment Date Assessment LastModified by Organization Details LastModified Time 04/12/2023 04/12/2023 Patient presented for follow up. Studies ordered as below. Discussed plan with patient/careg iver, who expressed understanding . Follow up as noted below. Not available 04/12/2023 15:09:38 01/05/2024 01/05/2024 Patient presented for follow up. Studies ordered as below. Discussed plan with patient/careg iver, who expressed understanding . Follow up as noted below. Not available 01/05/2024 10:26:29 07/09/2024 07/09/2024 Patient presented for follow up. Studies ordered as below. Discussed plan with patient/careg iver, who expressed understanding . Follow up as noted below. Not available 07/09/2024 10:13:03 01/14/2025 01/14/2025 Patient presented for follow up. Studies ordered as below. Discussed plan with patient/careg iver, who expressed understanding . Follow up as noted below. Not available 01/14/2025 11:12:04 03/06/2025 03/06/2025 Patient presented for follow up. Studies ordered as below. Discussed plan with patient/careg iver, who expressed understanding . Follow up as noted below. [email or web address] Not available 03/06/2025 17:59:17 Plan of Treatment Reminders Order Date Submit Date Provider Last Modified By Organization Details Last Modified Time Details Appointments ESTABLISH ED PATIENT 15 2024 10:00A Alicia Ndiaye MD Not available Not available Not available Lab lipid panel w/ direct LDL, serum 2024 [facility], [address], [address], [place], [address], 01/31/2025 10:36:57 TSH, ultra-sen sitive, serum 2024 [facility], [address], [address], [place], [address], 01/31/2025 10:37:00 CBC w/ auto diff 2024 [facility], [address], [address], [place], [address], 01/31/2025 10:36:57 CMP, serum or plasma 2024 025 [facility], [address], [address], [place], [address], 01/31/2025 10:36:56 HbA1c (hemoglob in A1c), blood 2024 025 [facility], [address], [place], [address], 01/31/2025 10:36:59 C-peptide , serum 2024 025 [facility], [address], [place], [address], 01/31/2025 10:37:01 magnesium , serum or plasma 2024 025 [facility], [address], [address], [place], [address], 01/31/2025 10:37:02 cobalamin and folate panel, serum 2024 025 [facility], [address], [place], [address], 01/31/2025 10:36:58 vitamin D, 25-hydrox y, total, serum 2024 025 [facility], [address], [place], [address], 01/31/2025 10:37:01 vitamin D, 25-hydrox y, total, serum 2024 025 [facility], [address], [place], [address], 07/10/2024 07:37:48 CMP, serum or plasma 2024 025 [facility], [address], [place], [address], 07/10/2024 07:37:43 CBC w/ auto diff 2024 025 [facility], [address], [place], [address], 07/10/2024 07:37:42 magnesium , serum or plasma 2024 025 [facility], [address], [place], [address], 07/10/2024 07:37:49 cobalamin and folate panel, serum 2024 025 [facility], [address], [place], [address], 07/10/2024 07:37:44 C-peptide , serum 2024 025 [facility], [address], [address], [place], [address], 07/10/2024 07:37:47 HbA1c (hemoglob in A1c), blood 2024 025 [facility], [address], [place], [address], 07/10/2024 07:37:45 H pylori Ag, stool 2023 024 [facility], [address], [address], [place], [address], 01/05/2024 11:17:02 CMP, serum or plasma 2022 023 [facility], [address], [place], [address], 12/29/2023 12:36:46 CBC w/ auto diff 2022 023 [facility], [address], [place], [address], 12/29/2023 12:36:45 lipid panel w/ direct LDL, serum 2022 023 [facility], [address], [place], [address], 12/29/2023 12:36:47 vitamin D, 25-hydrox y, total, serum 2022 [address]23 [address], [address], [place], [address], 12/29/2023 12:36:50 magnesium , serum or plasma 2022 023 [facility], [address], [address], [place], [address], 12/29/2023 12:36:51 vitamin B12 + folate, serum or blood 2022 023 [facility], [address], [address], [place], [address], 12/29/2023 12:36:48 HbA1c (hemoglob in A1c), blood 2022 023 [facility], [address], [address], [place], [address], 12/29/2023 12:36:48 TSH, ultra-sen sitive, serum 2022 023 [facility], [address], [address], [place], [address], 12/29/2023 12:36:49 Referral cardiolog ist referral 2024 025 VIOLA Tyler MD, [address] [place], [address], 10/15/2024 09:00:[address] referral 2023 024 [facility] Cobian MD, [address] [facility] [address] [address], [place], [address], 12/30/2024 04:03:03 cardiolog ist referral 2023 024 [facility] Tyler MD, [address] [place], [address], 10/24/2024 11:48:[address] referral 2022 023 [facility] Cobian MD, [address] [facility] [address], [place], [address], 04/06/2024 04:04:04 cardiolog ist referral 2022 023 [facility] Tyler MD, [address] [place], [address], 04/06/2024 04:04:04 Procedures None recorded. Surgeries None recorded. Imaging MAMMO, screening , digital, bilateral 2023 024 [facility] Patient Access Centralized Scheduling, Centralized Scheduling, [address] [place], [address], 02/06/2024 09:42:20 electroca rdiogram 2023 024 [facility], [facility], [address] [place] [address], [place], [address], 01/05/2024 13:30:27 Medication Orders clotrimaz ole-betam ethasone 1 %-0.05 % topical cream 2024 025 [id number], [address], [place], [address], 03/06/2025 18:00:04 venlafaxi ne ER 75 mg capsule,e xtended release 24 hr 2024 025 [facility], [address], [place], [address], 03/06/2025 18:00:05 Wegovy 0.25 mg/0.5 mL subcutane ous pen injector 2024 025 [facility], [address], [place], [address], 01/14/2025 12:12:37 metformin ER 500 mg tablet,ex tended release 24 hr 2024 025 [facility], [address], [place], [address], 01/14/2025 12:12:37 amlodipin e 2.5 mg tablet 2023 024 [facility], [address], [place], [address], 01/05/2024 11:16:54 fluticaso ne propionat e 50 mcg/actua tion nasal spray,andrew pension 2023 024 [facility], [address], [place], [address], 01/05/2024 11:16:55 pantopraz ole 20 mg tablet,de layed release 2023 024 [facility] [address], [place], [address], 01/19/2024 17:23:18 Zepbound 2.5 mg/0.5 mL subcutane ous pen injector 2023 024 [facility], [address], [place], [address], 01/16/2024 19:13:59 Qsymia 15 mg-92 mg capsule, extended release 2022 023 [facility], [address], [place], [address], 01/05/2024 11:07:13 Patient TargetsNo targets recorded. Patient Instructions Encounter Date Encounter Id Patient Instructions Last Modified By Organization Details Last Modified Time 04/12/2023 [id number] mammogram: about this test [email or web address] Not available 04/12/2023 15:28:46 body mass index: care instructions [email or web address] Not available 04/12/2023 15:28:45 learning about healthy weight mshenouda Not available 04/12/2023 15:28:45 01/05/2024 [id number] mammogram: about this test mshenouda Not available 01/05/2024 11:16:49 body mass index: care instructions mshenouda Not available 01/05/2024 11:16:50 learning about healthy weight mshenouda Not available 01/05/2024 11:16:49 07/09/2024 [id number] mammogram: about this test mshenouda Not available 07/09/2024 10:24:36 body mass index: care instructions mshenouda Not available 07/09/2024 10:24:36 learning about healthy weight mshenouda Not available 07/09/2024 10:24:35 01/14/2025 [id number] mammogram: about this test mshenouda Not available 01/14/2025 12:12:34 seasonal allergies: care instructions mshenouda Not available 01/14/2025 12:12:34 body mass index: care instructions mshenouda Not available 01/14/2025 12:12:34 learning about healthy weight mshenouda Not available 01/14/2025 12:12:33 living will mshenouda Not available 01/03 12:05:26 03/06/2025 [id number] rash: care instructions mshenouda Not available 03/06/2025 18:00:00 body mass index: care instructions mshenouda Not available 03/06/2025 18:00:00 learning about healthy weight mshenouda Not available 03/06/2025 18:00:00 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 Referral for El ectrocardiogram abnormal Referring Physician: Nohemi Ndiaye, Internal Medicine, Encounter Date: 04/12/2023 Wheel Truer Referral for Jamie ign hypertension Referring Physician: Nohemi Ndiaye Internal Medicine, Encounter Date: 04/12/2023 In Home Sales Representative Referral for El ectrocardiogram abnormal Referring Physician: Nohemi Ndiaye Internal Medicine, Encounter Date: 01/05/2024 Wheel Truer Referral for Jamie ign hypertension Referring Physician: Nohemi Ndiaye Internal Medicine, Encounter Date: 01/05/2024 In Home Sales Representative Referral for El ectrocardiogram abnormal Referring Physician: Nohemi Ndiaye, Internal Medicine, Encounter Date: 07/09/2024 Results Created Date Observation Date Name Description Value Unit Range Abnormal Flag Note LastModifiedBy Organization Detail LastModifiedTime 12/28/19 24 12/29/2023 CBC WITH DIFFE RENTI AL/PL ATELE T WBC 3.6 x10e3 /uL 3.4-10 .8 normal Not Available [facility] ([facility]) [address] [place], [address], 12/29/2023 12:36:44 12/28/19 24 12/29/2023 CBC WITH DIFFE RENTI AL/PL ATELE T RBC 3.76 x10e6 /uL 3.77-5 .28 below low normal Not Available [facility] ([facility]) [address] [place], [address], 12/29/2023 12:36:44 12/28/19 24 12/29/2023 CBC WITH DIFFE RENTI AL/PL ATELE T hemoglobin 12.5 g/dL 11.1-1 5.9 normal Not Available [facility] ([facility]) [address] [place], [address], 12/29/2023 12:36:44 12/28/19 24 12/29/2023 CBC WITH DIFFE RENTI AL/PL ATELE T hematocrit 37.7 % 34.0-4 6.6 normal Not Available [facility] ([facility]) [address] [place], [address], 12/29/2023 12:36:44 12/28/19 24 12/29/2023 CBC WITH DIFFE RENTI AL/PL ATELE T MCV 100 fL 79-97 above high normal Not Available [facility] ([facility]) [address] [place], [address], 12/29/2023 12:36:44 12/28/19 24 12/29/2023 CBC WITH DIFFE RENTI AL/PL ATELE T MCH 33.2 pg 26.6-3 3.0 above high normal Not Available [facility] ([facility]) [address], [place], [address], 12/29/2023 12:36:44 12/28/19 24 12/29/2023 CBC WITH DIFFE RENTI AL/PL ATELE T MCHC 33.2 g/dL 31.5-3 5.7 normal Not Available [facility] ([facility]) [address] [facility] [address], [place], [address], 12/29/2023 12:36:44 12/28/19 24 12/29/2023 CBC WITH DIFFE RENTI AL/PL ATELE T RDW 12.4 % 11.7-1 5.4 Not Available [facility] ([facility]) [address] [place], [address], 12/29/2023 12:36:44 12/28/19 24 12/29/2023 CBC WITH DIFFE RENTI AL/PL ATELE T platelets 203 x10e3 /uL 150-45 0 normal Not Available [facility] ([facility]) [address] [place], [address], 12/29/2023 12:36:44 12/28/19 24 12/29/2023 CBC WITH DIFFE RENTI AL/PL ATELE T neutrophils 51 % not estab. normal Not Available [facility] ([facility]) [address] [place], [address], 12/29/2023 12:36:44 12/28/19 24 12/29/2023 CBC WITH DIFFE RENTI AL/PL ATELE T lymphs 35 % not estab. normal Not Available [facility] ([facility]) [address] [place], [address], 12/29/2023 12:36:44 12/28/19 24 12/29/2023 CBC WITH DIFFE RENTI AL/PL ATELE T monocytes 10 % not estab. normal Not Available [facility] ([facility]) [address] [place], [address], 12/29/2023 12:36:44 12/28/19 24 12/29/2023 CBC WITH DIFFE RENTI AL/PL ATELE T eos 3 % not estab. normal Not Available [facility] ([facility]) [address] [facility] [address], [place], [address], 12/29/2023 12:36:44 12/28/19 24 12/29/2023 CBC WITH DIFFE RENTI AL/PL ATELE T basos 1 % not estab. normal Not Available [facility] ([facility]) [address] [facility], [place], [address], 12/29/2023 12:36:44 12/28/19 24 12/29/2023 CBC WITH DIFFE RENTI AL/PL ATELE T immature cells MACHINERY ENGINEER Not Available [facility] ([facility]) [address] [place], [address], 12/29/2023 12:36:44 12/28/19 24 12/29/2023 CBC WITH DIFFE RENTI AL/PL ATELE T neutrophils (absolute) 1.9 x10e3 /uL 1.4-7. 0 normal Not Available [facility] ([facility]) [address] [place], [address], 12/29/2023 12:36:44 12/28/19 24 12/29/2023 CBC WITH DIFFE RENTI AL/PL ATELE T lymphs (absolute) 1.3 x10e3 /uL 0.7-3. 1 normal Not Available [facility] ([facility]) [address] [place], [address], 12/29/2023 12:36:44 12/28/19 24 12/29/2023 CBC WITH DIFFE RENTI AL/PL ATELE T monocytes(ab solute) 0.4 x10e3 /uL 0.1-0. 9 normal Not Available [facility] ([facility]) [address] [facility] [address], [place], [address], 12/29/2023 12:36:44 12/28/19 24 12/29/2023 CBC WITH DIFFE RENTI AL/PL ATELE T eos (absolute) 0.1 x10e3 /uL 0.0-0. 4 normal Not Available [facility] ([facility]) [address] [facility] [address], [place], [address], 12/29/2023 12:36:44 12/28/19 24 12/29/2023 CBC WITH DIFFE RENTI AL/PL ATELE T baso (absolute) 0.0 x10e3 /uL 0.0-0. 2 normal Not Available [facility] ([facility]) [address] [facility] [address], [place], [address], 12/29/2023 12:36:44 12/28/19 24 12/29/2023 CBC WITH DIFFE RENTI AL/PL ATELE T immature granulocytes 0 % not estab. Not Available [facility] ([facility]) [address] [facility] [address], [place], [address], 12/29/2023 12:36:44 12/28/19 24 12/29/2023 CBC WITH DIFFE RENTI AL/PL ATELE T immature grans (abs) 0.0 x10e3 /uL 0.0-0. 1 Not Available [facility] ([facility]) [address] [facility] [address], [place], [address], 12/29/2023 12:36:44 12/28/19 24 12/29/2023 CBC WITH DIFFE RENTI AL/PL ATELE T NRBC MACHINERY ENGINEER Not Available [facility] ([facility]) [address] [facility] [address], [place], [address], 12/29/2023 12:36:44 12/28/19 24 12/29/2023 CBC WITH DIFFE RENTI AL/PL ATELE T hematology comments: MACHINERY ENGINEER Not Available [facility] ([facility]) [address] [facility], [place], [address], 12/29/2023 12:36:44 12/28/19 24 12/29/2023 VITAM IN D, 25-HY DROXY vitamin D, 25-hydroxy 16.6 NG/mL 30.0-1 00.0 below low normal Vitam in D defic iency has been defin ed by the Insti tute of Medic ine and an Endoc rine Socie ty pract ice guide line as a level of serum 25-OH vitam in D less than 20 ng/mL (1,2) . The Endoc rine Socie ty went on to furth er defin e vitam in D insuf ficie ncy as a level betwe en 21 and 29 ng/mL (2). 1. IOM (Inst itute of Medic ine). 2010. [place] ry refer ence noa es for calci um and D. Lilibeth coombs [place]: [facility] Press . 2. Ashley baig MF, Hair gandara [place], Yolanda off-F errar i HERBERT, et al. Evalu ation , treat ment, and preve ntion of vitam in D defic iency : an Endoc rine Socie ty clini alessandra pract ice guide line. JCEM. 2010; 96(7) :1911 -30. Not Available [facility] ([facility]) [address] [facility] [address], [place], [address], 12/29/2023 12:36:50 07/09/19 25 07/09/2024 CBC WITH DIFFE RENTI AL/PL ATELE T WBC 4.6 x10e3 /uL 3.4-10 .8 normal Not Available [facility] ([facility]) [address] [facility] [address], [place], [address], 07/10/2024 07:37:42 07/09/19 25 07/09/2024 CBC WITH DIFFE RENTI AL/PL ATELE T RBC 3.69 x10e6 /uL 3.77-5 .28 below low normal Not Available [facility] ([facility]) [address] [place], [address], 07/10/2024 07:37:42 07/09/19 25 07/09/2024 CBC WITH DIFFE RENTI AL/PL ATELE T hemoglobin 12.1 g/dL 11.1-1 5.9 normal Not Available [facility] ([facility]) [address] [place], [address], 07/10/2024 07:37:42 07/09/19 25 07/09/2024 CBC WITH DIFFE RENTI AL/PL ATELE T hematocrit 36.6 % 34.0-4 6.6 normal Not Available [facility] ([facility]) [address] [place], [address], 07/10/2024 07:37:42 07/09/19 25 07/09/2024 CBC WITH DIFFE RENTI AL/PL ATELE T MCV 99 fL 79-97 above high normal Not Available [facility] ([facility]) [address] [place], [address], 07/10/2024 07:37:42 07/09/19 25 07/09/2024 CBC WITH DIFFE RENTI AL/PL ATELE T MCH 32.8 pg 26.6-3 3.0 normal Not Available [facility] ([facility]) [address] [place], [address], 07/10/2024 07:37:42 07/09/19 25 07/09/2024 CBC WITH DIFFE RENTI AL/PL ATELE T MCHC 33.1 g/dL 31.5-3 5.7 normal Not Available [facility] ([facility]) [address] [place], [address], 07/10/2024 07:37:42 07/09/19 25 07/09/2024 CBC WITH DIFFE RENTI AL/PL ATELE T RDW 12.5 % 11.7-1 5.4 Not Available [facility] ([facility]) [address] [facility], [place], [address], 07/10/2024 07:37:42 07/09/19 25 07/09/2024 CBC WITH DIFFE RENTI AL/PL ATELE T platelets 226 x10e3 /uL 150-45 0 normal Not Available [facility] ([facility]) [address] [facility] [address], [place], [address], 07/10/2024 07:37:42 07/09/19 25 07/09/2024 CBC WITH DIFFE RENTI AL/PL ATELE T neutrophils 61 % not estab. normal Not Available [facility] ([facility]) [address] [facility] [address], [place], [address], 07/10/2024 07:37:42 07/09/19 25 07/09/2024 CBC WITH DIFFE RENTI AL/PL ATELE T lymphs 29 % not estab. normal Not Available [facility] ([facility]) [address] [facility] [address], [place], [address], 07/10/2024 07:37:42 07/09/19 25 07/09/2024 CBC WITH DIFFE RENTI AL/PL ATELE T monocytes 7 % not estab. normal Not Available [facility] ([facility]) [address] [facility] [address], [place], [address], 07/10/2024 07:37:42 07/09/19 25 07/09/2024 CBC WITH DIFFE RENTI AL/PL ATELE T eos 2 % not estab. normal Not Available [facility] ([facility]) [address] [facility] [address], [place], [address], 07/10/2024 07:37:42 07/09/19 25 07/09/2024 CBC WITH DIFFE RENTI AL/PL ATELE T basos 1 % not estab. normal Not Available [facility] ([facility]) [address] [place], [address], 07/10/2024 07:37:42 07/09/19 25 07/09/2024 CBC WITH DIFFE RENTI AL/PL ATELE T immature cells MACHINERY ENGINEER Not Available [facility] ([facility]) [address] [place], [address], 07/10/2024 07:37:42 07/09/19 25 07/09/2024 CBC WITH DIFFE RENTI AL/PL ATELE T neutrophils (absolute) 2.8 x10e3 /uL 1.4-7. 0 normal Not Available [facility] ([facility]) [address] [place], [address], 07/10/2024 07:37:42 07/09/19 25 07/09/2024 CBC WITH DIFFE RENTI AL/PL ATELE T lymphs (absolute) 1.3 x10e3 /uL 0.7-3. 1 normal Not Available [facility] ([facility]) [address] [place], [address], 07/10/2024 07:37:42 07/09/19 25 07/09/2024 CBC WITH DIFFE RENTI AL/PL ATELE T monocytes(ab solute) 0.3 x10e3 /uL 0.1-0. 9 normal Not Available [facility] ([facility]) [address] [place], [address], 07/10/2024 07:37:42 07/09/19 25 07/09/2024 CBC WITH DIFFE RENTI AL/PL ATELE T eos (absolute) 0.1 x10e3 /uL 0.0-0. 4 normal Not Available [facility] ([facility]) [address] [place], [address], 07/10/2024 07:37:42 07/09/19 25 07/09/2024 CBC WITH DIFFE RENTI AL/PL ATELE T baso (absolute) 0.0 x10e3 /uL 0.0-0. 2 normal Not Available [facility] ([facility]) [address] [facility] [address], [place], [address], 07/10/2024 07:37:42 07/09/19 25 07/09/2024 CBC WITH DIFFE RENTI AL/PL ATELE T immature granulocytes 0 % not estab. Not Available [facility] ([facility]) [address] [facility] [address], [place], [address], 07/10/2024 07:37:42 07/09/19 25 07/09/2024 CBC WITH DIFFE RENTI AL/PL ATELE T immature grans (abs) 0.0 x10e3 /uL 0.0-0. 1 Not Available [facility] ([facility]) [address] [facility] [address], [place], [address], 07/10/2024 07:37:42 07/09/19 25 07/09/2024 CBC WITH DIFFE RENTI AL/PL ATELE T NRBC MACHINERY ENGINEER Not Available [facility] ([facility]) [address] [facility] [address], [place], [address], 07/10/2024 07:37:42 07/09/19 25 07/09/2024 CBC WITH DIFFE RENTI AL/PL ATELE T hematology comments: MACHINERY ENGINEER Not Available [facility] ([facility]) [address] [facility] [address], [place], [address], 07/10/2024 07:37:42 07/09/19 25 07/09/2024 COMP. METAB OLIC PANEL (14) sodium 143 mmol/ L 134-14 4 normal Not Available [facility] ([facility]) [address] [facility] [place], [address], 07/10/2024 07:37:43 07/09/19 25 07/09/2024 COMP. METAB OLIC PANEL (14) potassium 3.7 mmol/ L 3.5-5. 2 normal Not Available [facility] ([facility]) [address] [facility] [place], [address], 07/10/2024 07:37:43 07/09/19 25 07/09/2024 COMP. METAB OLIC PANEL (14) chloride 106 mmol/ L 96-106 normal Not Available [facility] ([facility]) [address] [facility] [place], [address], 07/10/2024 07:37:43 07/09/19 25 07/10/2024 COMP. METAB OLIC PANEL (14) glucose 88 mg/dL 70-99 normal Not Available [facility] ([facility]) [address] [facility] [place], [address], 07/10/2024 07:37:43 07/09/19 25 07/10/2024 COMP. METAB OLIC PANEL (14) BUN 16 mg/dL 6-24 normal Not Available [facility] ([facility]) [address] [place], [address], 07/10/2024 07:37:43 07/09/19 25 07/10/2024 COMP. METAB OLIC PANEL (14) creatinine 0.78 mg/dL 0.57-1 .00 normal Not Available [facility] ([facility]) [address] [place], [address], 07/10/2024 07:37:43 07/09/19 25 07/10/2024 COMP. METAB OLIC PANEL (14) eGFR 94 mL/mi n/1.7 3 >59 normal Not Available [facility] ([facility]) [address] [place], [address], 07/10/2024 07:37:43 07/09/19 25 07/10/2024 COMP. METAB OLIC PANEL (14) BUN/creatini ne ratio 21 9-23 normal Not Available [facility] ([facility]) [address] [place], [address], 07/10/2024 07:37:43 07/09/19 25 07/10/2024 COMP. METAB OLIC PANEL (14) carbon dioxide, total 28 mmol/ L 20-29 normal Not Available [facility] ([facility]) [address] [facility] [place], [address], 07/10/2024 07:37:43 07/09/19 25 07/10/2024 COMP. METAB OLIC PANEL (14) calcium 9.1 mg/dL 8.7-10 .2 normal Not Available [facility] ([facility]) [address] [facility] [place], [address], 07/10/2024 07:37:43 07/09/19 25 07/10/2024 COMP. METAB OLIC PANEL (14) protein, total 6.4 g/dL 6.0-8. 5 normal Not Available [facility] ([facility]) [address] [facility] [place], [address], 07/10/2024 07:37:43 07/09/19 25 07/10/2024 COMP. METAB OLIC PANEL (14) albumin 4.0 g/dL 3.9-4. 9 normal Not Available [facility] ([facility]) [address] [place], [address], 07/10/2024 07:37:43 07/09/19 25 07/10/2024 COMP. METAB OLIC PANEL (14) globulin, total 2.4 g/dL 1.5-4. 5 Not Available [facility] ([facility]) [address] [place], [address], 07/10/2024 07:37:43 07/09/19 25 07/10/2024 COMP. METAB OLIC PANEL (14) bilirubin, total 0.4 mg/dL 0.0-1. 2 normal Not Available [facility] ([facility]) [address] [facility] [place], [address], 07/10/2024 07:37:43 07/09/19 25 07/10/2024 COMP. METAB OLIC PANEL (14) alkaline phosphatase 64 IU/L 44-121 normal Not Available [facility] ([facility]) [address] [facility] [place], [address], 07/10/2024 07:37:43 07/09/19 25 07/10/2024 COMP. METAB OLIC PANEL (14) AST (SGOT) 17 IU/L 0-40 normal Not Available [facility] ([facility]) [address] [facility] [place], [address], 07/10/2024 07:37:43 07/09/19 25 07/10/2024 COMP. METAB OLIC PANEL (14) ALT (SGPT) 20 IU/L 0-32 normal Not Available [facility] ([facility]) [address] [facility] [address], [place], [address], 07/10/2024 07:37:43 07/09/19 25 07/10/2024 VITAM IN B12 AND FOLAT E vitamin B12 697 pg/mL 232-12 45 normal Not Available [facility] ([facility]) [address] [facility] [place], [address], 07/10/2024 07:37:44 07/09/19 25 07/10/2024 VITAM IN B12 AND FOLAT E folate (folic acid), serum 2.4 NG/mL >3.0 below low normal A serum folat e carol ntrat ion of less than 3.1 ng/mL is consi dered to repre sent clini alessandra defic iency . Not Available [facility] ([facility]) [address] [facility] [address], [place], [address], 07/10/2024 07:37:44 07/09/19 25 07/10/2024 HEMOG LOBIN A1C hemoglobin A1C 5.6 % 4.8-5. 6 normal Predi abete s: 5.7 - 6.4 Diabe eduardo: >6.4 Glyce maico contr ol for adult s with diabe eduardo: <7.0 Not Available [facility] ([facility]) [address] [facility] [address], [place], [address], 07/10/2024 07:37:45 07/09/19 25 07/10/2024 C-PEP TIDE, SERUM C-peptide, serum 1.8 NG/mL 1.1-4. 4 C-Pep tide refer ence inter unruly is for fasti ng patie nts. Not Available [facility] ([facility]) [address] [facility] [address], [place], [address], 07/10/2024 07:37:47 07/09/19 25 07/10/2024 VITAM IN D, 25-HY DROXY vitamin D, 25-hydroxy 13.5 NG/mL 30.0-1 00.0 below low normal Vitam in D defic iency has been defin ed by the Insti tute of Medic ine and an Endoc rine Socie ty pract ice guide line as a level of serum 25-OH vitam in D less than 20 ng/mL (1,2) . The Endoc rine Socie ty went on to furth er defin e vitam in D insuf ficie ncy as a level betwe en 21 and 29 ng/mL (2). 1. IOM (Inst itute of Medic ine). 2009. Dieta ry refer ence intak es for calci um and D. Lilibeth coombs [place]: [facility] . 2. Ashley baig MF, Hair gandara [place], Yolanda off-F mellyar i HERBERT, et al. Evalu ation , treat ment, and preve ntion of vitam in D defic iency : an Endoc rine Socie ty clini alessandra pract ice guide line. JCEM. 2010; 96(7) :1911 -30. Not Available [facility] ([facility]) [address] [facility] [address], [place], [address], 07/10/2024 07:37:48 07/09/19 25 07/10/2024 MAGNE SIUM magnesium 1.9 mg/dL 1.6-2. 3 normal Not Available [facility] ([facility]) [address] [facility] [address], [place], [address], 07/10/2024 07:37:49 01/31/20 25 01/31/2025 CMP14 +EGFR glucose 95 mg/dL 70-99 normal Not Available [facility] ([facility]) [address] [facility] [address], [place], [address], 01/31/2025 10:36:56 01/31/20 25 01/31/2025 CMP14 +EGFR BUN 17 mg/dL 6-24 normal Not Available [facility] ([facility]) [address] [place], [address], 01/31/2025 10:36:56 01/31/20 25 01/31/2025 CMP14 +EGFR creatinine 0.81 mg/dL 0.57-1 .00 normal Not Available [facility] ([facility]) [address] [place], [address], 01/31/2025 10:36:56 01/31/20 25 01/31/2025 CMP14 +EGFR eGFR 89 mL/mi n/1.7 3 >59 normal Not Available [facility] ([facility]) [address] [facility] [address], [place], [address], 01/31/2025 10:36:56 01/31/20 25 01/31/2025 CMP14 +EGFR BUN/creatini ne ratio 21 9-23 normal Not Available [facility] ([facility]) [address] [place], [address], 01/31/2025 10:36:56 01/31/20 25 01/31/2025 CMP14 +EGFR sodium 141 mmol/ L 134-14 4 normal Not Available [facility] ([facility]) [address] [place], [address], 01/31/2025 10:36:56 01/31/20 25 01/31/2025 CMP14 +EGFR potassium 3.9 mmol/ L 3.5-5. 2 normal Not Available [facility] ([facility]) [address] [facility] [place], [address], 01/31/2025 10:36:56 01/31/20 25 01/31/2025 CMP14 +EGFR chloride 106 mmol/ L 96-106 normal Not Available [facility] ([facility]) [address] [facility] [place], [address], 01/31/2025 10:36:56 01/31/20 25 01/31/2025 CMP14 +EGFR carbon dioxide, total 24 mmol/ L 20-29 normal Not Available [facility] ([facility]) [address] [facility] [place], [address], 01/31/2025 10:36:56 01/31/20 25 01/31/2025 CMP14 +EGFR calcium 9.3 mg/dL 8.7-10 .2 normal Not Available [facility] ([facility]) [address] [facility] [place], [address], 01/31/2025 10:36:56 01/31/2001/31/2025 CMP14 +EGFR protein, total 6.6 g/dL 6.0-8. 5 normal Not Available [facility] ([facility]) [address] [facility] [place], [address], 01/31/2025 10:36:56 01/31/20 25 01/31/2025 CMP14 +EGFR albumin 4.1 g/dL 3.9-4. 9 normal Not Available [facility] ([facility]) [address] [facility] [place], [address], 01/31/2025 10:36:56 01/31/20 25 01/31/2025 CMP14 +EGFR globulin, total 2.5 g/dL 1.5-4. 5 Not Available [facility] ([facility]) [address] [facility] [place], [address], 01/31/2025 10:36:56 01/31/20 25 01/31/2025 CMP14 +EGFR bilirubin, total 0.4 mg/dL 0.0-1. 2 normal Not Available [facility] ([facility]) [address] [facility] [address], [place], [address], 01/31/2025 10:36:56 01/31/20 25 01/31/2025 CMP14 +EGFR alkaline phosphatase 72 IU/L 44-121 normal Not Available [facility] ([facility]) [address] [facility] [address], [place], [address], 01/31/2025 10:36:56 01/31/20 25 01/31/2025 CMP14 +EGFR AST (SGOT) 24 IU/L 0-40 normal Not Available [facility] ([facility]) [address] [facility] [address], [place], [address], 01/31/2025 10:36:56 01/31/20 25 01/31/2025 CMP14 +EGFR ALT (SGPT) 29 IU/L 0-32 normal Not Available [facility] ([facility]) [address] [place], [address], 01/31/2025 10:36:56 01/31/20 25 01/30/2025 LP+LD L DIREC T LDL calc comment: COMMEN T See LDL Comme nt if repor adry. Not Available [facility] ([facility]) [address] [place], [address], 01/31/2025 10:36:57 01/31/20 25 01/31/2025 LP+LD L DIREC T cholesterol, total 151 mg/dL 100-19 9 normal Not Available [facility] ([facility]) [address] [place], [address], 01/31/2025 10:36:57 01/31/20 25 01/31/2025 LP+LD L DIREC T triglyceride s 59 mg/dL 0-149 normal Not Available [facility] ([facility]) [address] [facility] [address], [place], [address], 01/31/2025 10:36:57 01/31/20 25 01/31/2025 LP+LD L DIREC T HDL cholesterol 76 mg/dL >39 normal Not Available [facility] ([facility]) [address] [place], [address], 01/31/2025 10:36:57 01/31/20 25 01/31/2025 LP+LD L DIREC T VLDL cholesterol alessandra 12 mg/dL 5-40 Not Available [facility] ([facility]) [address] [place], [address], 01/31/2025 10:36:57 01/31/20 25 01/31/2025 LP+LD L DIREC T LDL chol calc (nih) 63 mg/dL 0-99 Not Available [facility] ([facility]) [address] [place], [address], 01/31/2025 10:36:57 01/31/20 25 01/31/2025 LP+LD L DIREC T LDL chol. (direct) 64 mg/dL 0-99 Not Available [facility] ([facility]) [address] [facility] [address], [place], [address], 01/31/2025 10:36:57 01/31/20 25 01/31/2025 LP+LD L DIREC T LDL direct comment: MACHINERY ENGINEER Not Available [facility] ([facility]) [address] [place], [address], 01/31/2025 10:36:57 01/31/20 25 01/31/2025 VITAM IN B12 AND FOLAT E vitamin B12 861 pg/mL 232-12 45 normal Not Available [facility] ([facility]) [address] [place], [address], 01/31/2025 10:36:58 01/31/2001/31/2025 VITAM IN B12 AND FOLAT E folate (folic acid), serum 15.7 NG/mL >3.0 normal A serum folat e carol ntrat ion of less than 3.1 ng/mL is consi dered to repre sent clini alessandra defic iency . Not Available [facility] ([facility]) [address] [facility] [address], [place], [address], 01/31/2025 10:36:58 01/31/2001/31/2025 HEMOG LOBIN A1C hemoglobin A1C 5.5 % 4.8-5. 6 normal Predi abete s: 5.7 - 6.4 Diabe eduardo: >6.4 Glyce maico contr ol for adult s with diabe eduardo: <7.0 Not Available [facility] ([facility]) [address] [facility] [address], [place], [address], 01/31/2025 10:36:59 01/31/2001/31/2025 TSH TSH 1.510 uIU/m L 0.450- 4.500 normal Not Available [facility] ([facility]) [address] [facility] [address], [place], [address], 01/31/2025 10:37:00 01/31/2001/31/2025 C-PEP TIDE, SERUM C-peptide, serum 2.1 NG/mL 1.1-4. 4 C-Pep tide refer ence inter unruly is for fasti ng patie nts. Not Available [facility] ([facility]) [address] [facility] [address], [place], [address], 01/31/2025 10:37:01 01/31/2001/31/2025 VITAM IN D, 25-HY DROXY vitamin D, 25-hydroxy 51.1 NG/mL 30.0-1 00.0 Vitam in D defic iency has been defin ed by the Insti tute of Medic ine and an Endoc rine Socie ty pract ice guide line as a level of serum 25-OH vitam in D less than 20 ng/mL (1,2) . The Endoc rine Socie ty went on to furth er defin e vitam in D insuf ficie ncy as a level betwe en 21 and 29 ng/mL (2). 1. IOM (Inst itute of Medic ine). 2010. Dieta ry refer ence intak es for calci um and D. Lilibeth coombs [place]: The [facility] Press . 2. Ashley baig MF, Hair gandara [place], Yolanda off-F errar i HERBERT, et al. Evalu ation , treat ment, and preve ntion of vitam in D defic iency : an Endoc rine Socie ty clini alessandra pract ice guide line. JCEM. 2010; 96(7) :1911 -30. Not Available [facility] ([facility]) [address] [facility] [address], [place], [address], 01/31/2025 10:37:01 01/31/20 25 01/31/2025 MAGNE SIUM magnesium 2.0 mg/dL 1.6-2. 3 normal Not Available [facility] ([facility]) [address] [facility] [address], [place], [address], 01/31/2025 10:37:02 01/05/20 24 01/05/2024 elect rocar winstongr am No observ ation record ed. [facility], [address], [place], [address], 07/09/2024 10:18:35 01/05/20 24 01/05/2024 elect rocar diogr am No observ ation record ed. [facility], [address], [place], [address], 07/09/2024 10:18:36 02/06/20 24 02/03/2024 MAMMO , scree rosalina, digit al, bilat eral No observ ation record ed. [address] , [place], [address], 07/09/2024 10:18:35 10/25/19 25 09/28/2024 exerc aleksandr urena s test No observ ation record ed. [facility] [address], [place], [address], 01/14/2025 11:59:52 10/25/19 25 08/22/2024 , echo ardio gram No observ ation record ed. [facility] [address] [place], [place], [address], 01/14/2025 11:59:53 10/25/1908/06/2024 elect senthil galeano am No observ ation record ed. [facility] [address] [place], [place], [address], 01/14/2025 11:59:53 Result Notes None recorded. Problems Name Problem SNOMED Code Status Onset Date Resolution Date Notes Provider Name and Address Organization Details Recorded Time Benign hypertension 47753591 Active 2022 Nohemi Ndiaye MD [address], [place], [address] , [facility] 3 15:10:34 History of bariatric surgical procedure 967220204 Active 2022 Nohemi Ndiaye MD [address], [place], [address] , [facility] 3 15:10:43 Iron deficiency 80204821 Active 2022 MD Haydee Alfaro[address] [facility] [address], [place], [address] , [facility] 3 15:10:44 Chronic constipation 612592158 Active 2022 MD Haydee Alfaro2 [address], [place], [address] , [facility] 3 15:10:57 Family history of diabetes mellitus 022778841 Active 2022 MD Chikis Alfaro [address], [place], [address] , [facility] 3 15:15:32 Family history of malignant neoplasm of ovary 546620268 Active 2022 MD Chikis Alfaro [address], [place], [address] , [facility] 3 15:15:34 Gastroesophag eal reflux disease without esophagitis 214524656 Active 2022 MD Chikis Alfaro [address], [place], , [facility] 3 15:18:36 Electrocardio gram abnormal 541638303 Active 2022 MD Chikis Alfaro [address], [place], , [facility] 3 16:02:28 Vitamin D deficiency 77289378 Active 2022 MD Chikis Alfaro [address], [place], [address] , [facility] 3 22:12:36 Body mass index 30+ - obesity 386433972 Active 2022 MD Chikis Alfaro [address], [place], [address] , [facility] 5 17:58:23 Allergic rhinitis caused by pollen 54961363 Active 2023 MD Chikis Alfaro [address], [place], [address] , [facility] 4 11:09:08 Serum folate below reference range 881833655 Active 2024 MD Chikis Alfaro [facility], [place], [address] , [facility] 5 21:24:46 Mixed hyperlipidemi a 214939125 Active 2024 MD Chikis Alfaro [facility] [address], [place], [address] , [facility] 12:04:14 Thiamine deficiency 840041387 Active 2024 MD Chikis Alfaro [facility] [address], [place], [address] , [facility] 17:58:19 Mixed anxiety and depressive disorder 515681923 Active 2024 MD Chikis Alfaro [facility] [address], [place], [address] , [facility] 17:58:00 Macrocytosis 658801427 Active 2024 MD Chikis Alfaro [facility] [address], [place], [address] , [facility] 17:58:21 Problem Notes None recorded. Procedures Surgical History Date Name Laterality Status Provider Name and Address Organization Details Recorded Time 01/06/20 23 Colonoscopy completed MD Chikis Alfaro [facility] [address], [place], [address], [facility] 01/05/2023 17:26:04 06/05/19 16 laparoscopic sleeve gastrectomy completed MD Chikis Alfaro [facility], [place], [address], [facility] 10/11/2022 15:28:07 06/05/19 13 lumbar spinal fusion completed MD Chikis Alfaro [facility] [address], [place], [address], [facility] 10/11/2022 15:28:32 ligation of fallopian tube completed MD Chikis Alfaro [facility] [address], [place], [address], [facility] 10/11/2022 15:27:25 partial hysterectomy completed MD Chikis Alfaro [facility] [address], [place], [address], [facility] 10/11/2022 15:28:45 Imaging Results None recorded. Procedure Notes None recorded. Medical Equipment None Reported. Allergies Allergen ID Allergen Name Allergen Category Reaction Reaction Severity Criticality Documentation Date Start Date Code Code System Note Provider Name and Address Organization Details Recorded Time 82369 lidocaine medicatio n other Not available low 10/11/2022 6387 RxNorm nerramos Ndiaye MD [address], [place], [address], [facility] 3 15:06:26 13704 Non-stero idal anti-infl ammatory agent (substanc e) medicatio n other Not available low 03/06/20252021 68158 5008 SNOMED Baria tric surge ry Not Available viola - External Data Service - prod 5 03:41:52 Medications Name Sig Start Date Stop Date Status Note LastModified by Organization Details LastModified Time carisoprodo l 350 mg tablet TAKE 1 TABLET BY MOUTH EVERY EIGHT HOURS NEEDED FOR PAIN FOR MUSCLE SPASM. active Not Available Not Available No t Available celecoxib 200 mg capsule TAKE 1 CAPSULE BY MOUTH TWICE A DAY START THE DAY BEFORE SURGERY active Not Available Not Available No t Available cyclobenzap rine 10 mg tablet active Not Available Not Available Not Available venlafaxine ER 75 mg capsule,ext ended release 24 hr TAKE 1 CAPSULE BY MOUTH EVERY DAY active Not Available Not Available No t Available Iron (ferrous sulfate) 325 mg (65 mg iron) tablet Take 1 tablet every day by oral route. active Not Available Not Available No t Available azithromyci n 250 mg tablet TAKE 2 TABLETS (500 MG) BY ORAL ROUTE ONCE DAILY FOR 1 DAY THEN 1 TABLET (250 MG) BY ORAL ROUTE ONCE DAILY FOR 4 DAYS 04/30 completed Not Available Not Available Not Available ondansetron HCl 4 mg tablet TAKE 1 TABLET BY MOUTH EVERY 6 HOURS NEEDED FOR NAUSEA active Not Available Not Available No t Available amlodipine 2.5 mg tablet TAKE 1 TABLET BY MOUTH EVERY DAY active Not Available Not Available No t Available phentermine 37.5 mg tablet Take 1 tablet every day by oral route. 10/11 completed Not Available Not Available Not Available pantoprazol e 20 mg tablet,kary yed release TAKE 1 TABLET BY MOUTH EVERY DAY active Not Available Not Available No t Available oxycodone-a cetaminophe n 5 mg-325 mg tablet TAKE 1 TABLET BY MOUTH EVERY 6 HOURS NEEDED FOR PAIN active Not Available Not Available No t Available benzonatate 100 mg capsule Take 1 capsule 3 times a day by oral route. 01/04 completed Not Available Not Available Not Available clotrimazol e-betametha sone 1 %-0.05 % topical cream APPLY TO AFFECTED AND SURROUNDI NG AREA TWICE A DAY FOR 2 WEEKS TOPICALLY IN THE MORNING AND EVENING active Not Available Not Available No t Available docusate sodium 100 mg capsule TAKE 1 CAPSULE BY MOUTH TWICE A DAY active Not Available Not Available No t Available folic acid 1 mg tablet TAKE 1 TABLET BY MOUTH EVERY DAY 2024 active Not Available Not Available Not Avai lable montelukast 10 mg tablet TAKE 1 TABLET BY MOUTH EVERY DAY active Not Available Not Available No t Available ergocalcife rol (vitamin D2) 1,250 mcg (50,000 unit) capsule TAKE 1 CAPSULE BY MOUTH ONE TIME PER WEEK 2024 active Not Available Not Available Not Avai lable fluticasone propionate 50 mcg/actuati on nasal spray,suspe nsion [place] 1 spray every day by intranasa l route. 2023 active Not Available Not Available Not Avai lable metformin ER 500 mg tablet,exte nded release 24 hr TAKE 1 TABLET BY MOUTH TWICE A DAY active Not Available Not Available No t Available thiamine HCl (vitamin B1) 50 mg tablet TAKE 1 TABLET BY MOUTH EVERY DAY active Not Available Not Available No t Available progesteron e micronized 100 mg capsule 1 CAPSULE(S ) ORALLY 1 TIMES AT NIGHT active Not Available Not Available No t Available amoxicillin 875 mg-potassiu m clavulanate 125 mg tablet TAKE 1 TABLET BY MOUTH EVERY 12 HOURS TIL GONE active Not Available Not Available No t Available enoxaparin 40 mg/0.4 mL subcutaneou s syringe INJECT 1 SYRINGE SUBCUTANE OUSLY ONCE A DAY active Not Available Not Available No t Available estradiol 0.0375 mg/[address] 1 PATCH ON THE SKIN ONCE A WEEK FOR 7 DAYS PATIENT NEEDS APPT FOR ADDITIONA L REFILLS active Not Available Not Available No t Available rosuvastati n 10 mg tablet TAKE 1 TABLET BY MOUTH EVERY DAY active Not Available Not Available No t Available amlodipine 10/11 completed Not Available Not Available Not Available Senexon-S 8.6 mg-50 mg tablet TAKE 2 TABLETS BY MOUTH EVERY DAY active Not Available Not Available No t Available Qsymia 11.25 mg-69 mg capsule, extended release TAKE 1 CAPSULE BY MOUTH EVERY DAY FOR 14 DAYS 04/12 completed Not Available Not Available Not Available Qsymia 3.75 mg-23 mg capsule, extended release TAKE 1 CAPSULE BY MOUTH EVERY DAY FOR 14 DAYS 10/24 completed Not Available Not Available Not Available Qsymia 15 mg-92 mg capsule, extended release TAKE 1 CAPSULE BY MOUTH EVERY DAY 01/04 completed Not Available Not Available Not Available Qsymia 7.5 mg-46 mg capsule, extended release TAKE 1 CAPSULE BY MOUTH EVERY DAY 01/10 completed Not Available Not Available Not Available Wegovy 0.25 mg/0.5 mL subcutaneou s pen injector Inject 0.25 mg every week by subcutane ous route. 2024 active Not Available Not Available Not Avai lable Zepbound 2.5 mg/0.5 mL subcutaneou s pen injector Inject 2.5 mg every week by subcutane ous route. 01/15 completed Not Available Not Available Not Available Vitals Date Recorded Body height Body mass index (BMI) Body weight Heart rate Respiratory rate Body temperature Systolic And Diastolic Provider Name and Address Organization Details Last Updated DateTime 5 165.1 cm 31.6 kg/m2 68240.5 5 g 65 /min 16 /min 97.8 [degF] 132/82 mm[Hg] Michelle [facility] 5 10:12:50 Date Recorded Body height Body temperature Body mass index (BMI) Body weight Heart rate Respiratory rate Systolic And Diastolic Provider Name and Address Organization Details Last Updated DateTime 4 165.1 cm 98.7 [degF] 32.8 kg/m2 13730.7 g 50 /min 16 /min 134/85 mm[Hg] [facility] 4 10:41:06 Date Recorded Body height Heart rate Respiratory rate Body temperature Body mass index (BMI) Body weight Systolic And Diastolic Provider Name and Address Organization Details Last Updated DateTime 5 165.1 cm 62 /min 16 /min 97.8 [degF] 33.8 kg/m2 79035.2 5 g 112/81 mm[Hg] Michelle [facility] 5 11:37:10 Date Recorded Body height Heart rate Respiratory rate Body temperature Body mass index (BMI) Body weight Systolic And Diastolic Provider Name and Address Organization Details Last Updated DateTime 5 165.1 cm 81 /min 16 /min 97.6 [degF] 32.9 kg/m2 33648.2 9 g 134/79 mm[Hg] Shanti Keen [facility] 5 17:15:51 Date Recorded Body height Body mass index (BMI) Body weight Body temperature Respiratory rate Heart rate Systolic And Diastolic Provider Name and Address Organization Details Last Updated DateTime 3 165.1 cm 31.1 kg/m2 58157.7 7 g 97.7 [degF] 16 /min 73 /min 123/79 mm[Hg] [facility] 3 15:12:24 Social History None recorded. Functional Status None recorded. Mental Status None recorded. Family History Relationship Description Onset Age of this Age Resolved Age Notes LastModified by Organization Details LastModified Time Mother Malignant neoplasm of ovary 63 [email or web address] Not available 2022 15:13:17 Medical History No medical history recorded. Gynecological HistoryNo gynecological history recorded. Obstetrics History GPAL:G 0 P 0 0 0 0 Past Encounters Encounter ID Performer Location Encounter Start Date Encounter Closed Date Diagnosis/Indication Diagnosis SNOMED-CT Code Diagnosis ICD10 Code Diagnosis IMO Codes Diagnosis Note [id number] Nohemi Ndiaye MD [facility], [facility] [address] [facility] ,[address] [address] 10/11/2022 14:19:40 10/11/2022 16:08:58 Adult health examination 075651621 Z00.01 Benign hypertension 1072 5009 I10 Iron deficiency 22176551 E61.1 History of bariatric surgical procedure 426147997 Z98.84 sleeve 2016 Chronic constipation 236 075225 K59.09 Body mass index 25-29 - overweight 911874373 Z68.26 education on topamax Family his tory of diabetes mellitus 829128406 Z83.3 father Family his tory of malignant neoplasm of ovary 908860555 Z80.41 mother Screening mammography 24 433467 Z12.31 per pt had mammogram 06/2022 Screening for malignant neoplasm of cervix 897434884 Z12.4 per pt had pelvic ex 06/2022 Screening for malignant neoplasm of colon 200168359 Z12.11 Edema of l ower extremity 460069494 R60.0 Active or passive immunization 961226565 Z23 Gastroesop hageal reflux disease without esophagitis 931691367 K21.9 Viral screening 36880693 4 Z11.59 [id number] Nohemi Ndiaye MD [employer], [employer] [facility]2 [facility] ,[address] [place] [address] 01/10/2023 15:04:04 01/10/2023 16:07:31 Benign hypertension 88089663 I10 Body mass index 30+ - obesity 893885555 Z68.30 education on topamax History of bariatric surgical procedure 133688791 Z98.84 sleeve 2016 Vitamin D deficiency 347 65546 E55.9 Cholesterol screening 27 3787189 Z13.220 Screening mammography 24 969198 Z12.31 per pt had mammogram 06/2022 Screening for malignant neoplasm of cervix 149308428 Z12.4 per pt had pelvic ex 06/2022 Screening for malignant neoplasm of colon 309666255 Z12.11 last C scope 01/04/23 , good for 5 years Active or passive immunization 732574772 Z23 [id number] Nohemi Ndiaye MD [employer], [employer] [facility]2 [facility] ,[address] [place] [address] 03/09/2023 14:14:23 03/09/2023 14:45:12 Cough 09052937 R05.9 RTC 1-2 week if not gone Allergic r hinitis caused by pollen 92802190 J30.1 Gastroesop hageal reflux disease without esophagitis 988823338 K21.9 [id number] Nohemi Ndiaye MD [employer], [facility] [address] [facility] ,[address] [place] [address] 04/12/2023 15:00:00 04/12/2023 15:45:14 Benign hypertension 83982621 I10 Body mass index 30+ - obesity 532799043 Z68.30 education on topamax Electrocar diogram abnormal 056850951 R94.31 History of bariatric surgical procedure 786329852 Z98.84 sleeve 2016 Vitamin D deficiency 347 10674 E55.9 Screening mammography 24 260931 Z12.31 per pt had mammogram 06/2022 Screening for malignant neoplasm of cervix 320394726 Z12.4 per pt had pelvic ex 06/2022 Screening for malignant neoplasm of colon 604631755 Z12.11 last C scope 01/04/23 , good for 5 years Active or passive immunization 608013546 Z23 Cholesterol screening 27 0759963 Z13.220 [id number] Nohemi Ndiaye MD [employer], [place] [address] [facility] ,[address] [place] [address] 01/05/2024 10:15:35 01/05/2024 12:02:44 Adult health examination 288187859 Z00.01 Benign hypertension 1072 5009 I10 Body mass index 30+ - obesity 371631109 Z68.30 education Chronic constipation 236 482761 K59.09 stable Electrocar diogram abnormal 464293893 R94.31 Family his tory of diabetes mellitus 494595791 Z83.3 father Family his tory of malignant neoplasm of ovary 084120242 Z80.41 mother Gastroesop hageal reflux disease without esophagitis 126690206 K21.9 History of bariatric surgical procedure 918497404 Z98.84 sleeve 2016 Iron deficiency 71479502 E61.1 better Vitamin D deficiency 347 89722 E55.9 Screening mammography 24 586984 Z12.31 per pt had mammogram 06/2022 Allergic r hinitis caused by pollen 18045775 J30.1 Screening for malignant neoplasm of cervix 134591504 Z12.4 per pt had pelvic ex 06/2022 Screening for malignant neoplasm of colon 019648340 Z12.11 last C scope 01/04/23 , good for 5 years Active or passive immunization 853113992 Z23 decline flu [id number] Nohemi Ndiaye MD [employer] [facility], [place] [address] [facility] [place] ,[address] [place] [address] 07/09/2024 10:06:09 07/09/2024 10:32:05 Benign hypertension 07320483 I10 last ophth 03/2024 ,last EKG 01/05/24 Body mass index 30+ - obesity 765697608 Z68.30 education Electrocar diogram abnormal 053978897 R94.31 Family his tory of diabetes mellitus 846757959 Z83.3 father History of bariatric surgical procedure 431296932 Z98.84 sleeve 2016 Vitamin D deficiency 347 71621 E55.9 Screening mammography 24 875499 Z12.31 per pt had mammogram 02/03/24 Screening for malignant neoplasm of cervix 942965831 Z12.4 per pt had pelvic ex 06/2022 Screening for malignant neoplasm of colon 663192569 Z12.11 last C scope 01/04/23 , good for 5 years Active or passive immunization 734134429 Z23 decline flu [id number] Nohemi Ndiaye MD [employer] [facility], [place] [address] [facility] ,[address] [place] [address] 01/14/2025 11:08:40 01/14/2025 12:17:15 Benign hypertension 69069838 I10 last ophth 03/2024 ,last EKG 09/28/24 Body mass index 30+ - obesity 066225102 Z68.30 education History of bariatric surgical procedure 509464819 Z98.84 sleeve 2016 Vitamin D deficiency 347 89824 E55.9 recheck Mixed hyperlipidemia 267 075278 E78.2 97089 cardiology started rosuva 10 Adult heal th examination 885673956 Z00.01 [id number] Family his tory of diabetes mellitus 516582517 Z83.3 father Electrocar diogram abnormal 779929178 R94.31 seen cardiology , Had stress test and echo Gastroesop hageal reflux disease without esophagitis 426601279 K21.9 stable Chronic constipation 236 351152 K59.09 stable Iron deficiency 40362854 E61.1 better Serum teddy te below reference range 157671268 R79.89 recheck Allergic r hinitis caused by pollen 41090524 J30.1 stable Screening mammography 24 294566 Z12.31 7158455192 per pt had mammogram 02/03/24 Cancer cer vix screening status 730113812 Z12.4 675980 per pt had pelvic ex 06/2022 Screening for malignant neoplasm of colon 546853549 Z12.11 925382 last C scope 01/04/23 , good for 5 years Immunization due 7264493 08 Z23 5062721 decline flu [id number] Nohemi Ndiaye MD [facility], [place] [address] [facility] [place] [address] 03/06/2025 16:36:43 03/06/2025 18:13:05 Thiamine deficiency 769150626 E51.9 on replacemen t Macrocytosis 005783384 D 75.89 92206 D/C ETOH Body mass index 30+ - obesity 021320765 Z68.32 090347 - education ,- down 5 LBs Eruption 447803516 R21 515397 Mixed anxi ety and depressive disorder 359680266 F41.8 411316 Immunization due 5042356 08 Z23 0674298 decline flu Health Concerns Section Related Observation LastModified by Organization Detai ls LastModified Time None Recorded Concern Status LastModified by Organization Details LastModified Time None Recorded Advance Directives Directive None Recorded Payers Insurance Date Sequence Insurance Name Policy Number Policy Manrique Covered Member ID Manrique Member ID Guarantor Name 03/05/2025 1 31[place]over [id number] Mohini Waterman [id number] Mohini Waterman Notes Date Note Type Note Provider Name and Address Organization Details Recorded Time 04/12/2023 text/html Hypertension F/UReported by PatientHPIFor medications, patient reportstaking medications as directedandno side effects from medication. For lifestyle, patient reportsregular exercise,limiting/yasemin iding salt, andcompliant with low salt diet. For associated symptoms, patient reportsno dizziness,no lightheadedness,no chest pain,no shortness of breath,no palpitations,no edema,no calf pain with exertion, andno headache. cough is gone Nohemi Ndiaye MD [address], [place], [address], [facility] 04/12/2023 15:31:37 01/05/2024 text/html Medicare Annual Wellness VisitReported by PatientSocial/Behavio ral HistoryFor diet and nutrition, patient reportshealthy diet. For fracture risk, patient reportsno history of fractures,no recent explained fracture,no sudden unexplained fractures, andno previous musculoskeletal injuries. For physical activity, patient reportsexercises on a regular basis,recent increase in physical activity,good physical condition, anddiscussed exercise habits.Mental Status:For depression risk, patient reportsnever feels sad, empty, or tearful,no loss of interest in activities,no significant changes in weight,no sleep disturbances or insomnia,no agitation,no loss of energy,no feelings of worthlessness or guilt,no thoughts of suicide,no history of depression, andno history of mood disorders. For orientation, patient reportsno disorientation to time,no disorientation to date, andno disorientation to place. For concentration and memory, patient reportsno decreased concentrating ability,no memory lapses or loss, anddoes not forget words. For speech/motor difficulties, patient reportsno speech difficulties,no difficulty expressing formulated concepts,no difficulty with fine manipulative tasks,no difficulty writing/copying,no slowed reaction time, anddoes not knock things over when trying to pick them up.Functional AbilityFor hearing, patient reportsno loss of hearing. For vision, patient reportsno vision problems. For falls risk assessment, patient reportsno frequent falls while walking,no fall in the past year,no fall since last visit, andno dizziness/vertigo. For home safety, patient reportsuse of seatbeltsandno vision or hearing loss while driving. Hypertension F/UReported by PatientHPIFor medications, patient reportstaking medications as directedandno side effects from medication. For lifestyle, patient reportsregular exercise,limiting/yasemin iding salt, andcompliant with low salt diet. For associated symptoms, patient reportsno dizziness,no lightheadedness,no chest pain,no shortness of breath,no palpitations,no edema,no calf pain with exertion, andno headache. Nohemi Ndiaye MD [address] [facility] [address], [place], [address], [facility] 01/05/2024 11:17:24 07/09/2024 text/html Hypertension F/UReported by PatientHPIFor medications, patient reportstaking medications as directedandno side effects from medication. For lifestyle, patient reportsregular exercise,limiting/yasemin iding salt, andcompliant with low salt diet. For associated symptoms, patient reportsno dizziness,no lightheadedness,no chest pain,no shortness of breath,no palpitations,no edema,no calf pain with exertion, andno headache. Nohemi Ndiaye MD [address] [facility] [address], [place], [address], [facility] 07/09/2024 10:25:26 01/14/2025 text/html Medicare Annual Wellness VisitReported by PatientSocial/Behavio ral HistoryFor diet and nutrition, patient reportshealthy diet. For fracture risk, patient reportsno history of fractures,no recent explained fracture,no sudden unexplained fractures, andno previous musculoskeletal injuries. For physical activity, patient reportsexercises on a regular basis (walking),recent increase in physical activity,good physical condition, anddiscussed exercise habits.Mental Status:For depression risk, patient reportsnever feels sad, empty, or tearful,no loss of interest in activities,no significant changes in weight,no sleep disturbances or insomnia,no agitation,no loss of energy,no feelings of worthlessness or guilt,no thoughts of suicide,no history of depression, andno history of mood disorders. For orientation, patient reportsno disorientation to time,no disorientation to date, andno disorientation to place. For concentration and memory, patient reportsno decreased concentrating ability,no memory lapses or loss, anddoes not forget words. For speech/motor difficulties, patient reportsno speech difficulties,no difficulty expressing formulated concepts,no difficulty with fine manipulative tasks,no difficulty writing/copying,no slowed reaction time, anddoes not knock things over when trying to pick them up.Functional AbilityFor hearing, patient reportsno loss of hearing. For vision, patient reportsno vision problems. For falls risk assessment, patient reportsno frequent falls while walking,no fall in the past year,no fall since last visit, andno dizziness/vertigo. For home safety, patient reportsuse of seatbeltsandno vision or hearing loss while driving. Hypertension F/UReported by PatientHPIFor medications, patient reportstaking medications as directedandno side effects from medication. For lifestyle, patient reportsregular exercise,limiting/yasemin iding salt, andcompliant with low salt diet. For associated symptoms, patient reportsno dizziness,no lightheadedness,no chest pain,no shortness of breath,no palpitations,no edema,no calf pain with exertion, andno headache. Nohemi Ndiaye MD [address] [facility] [address], [place], [address], [facility] 01/14/2025 12:13:59 03/06/2025 text/html Hypertension F/UReported by PatientHPIFor medications, patient reportstaking medications as directedandno side effects from medication. For lifestyle, patient reportsregular exercise,limiting/yasemin iding salt, andcompliant with low salt diet. For associated symptoms, patient reportsno dizziness,no lightheadedness,no chest pain,no shortness of breath,no palpitations,no edema,no calf pain with exertion, andno headache. skin rash Lt thigh Nohemi Ndiaye MD [address] [facility] [address], [place], [address], [facility] 03/06/2025 18:00:37 OBGyn Episode No OBEpisode recorded.
[2025-04-11] MEDS: LACTATED RINGERS 1,000 ML 30 ML IV CONT ×2 (06:30→12:48)
[2025-04-11] MEDS: TRANEXAMIC ACID 1,000MG/ISO100 1,000 MG/100 ML BAG 200 MG IVPB (07:03)
--- NOTE | 2025-04-11 07:03 | WPDHPUPDATE1 ---
History and Physical Update Update Date/Time: 04/11/25 07:03 History and Physical has been reviewed, including an updated exam of the patient. There are NO changes in the patient's condition. Risks, benefits, and alternatives have been discussed and questions answered. Patient agrees to proceed with procedure.
--- NOTE | 2025-04-11 07:07 | WPDANESEPPF ---
Anes - Initial Pre Proc Eval Procedure: Operation Date: 04/11/25 07:30 Proposed Procedures p Belt Lipectomy with Liposuction - Davin Abad MD Date/Time: 04/11/25 07:07 Surgeon: Davin Abad MD Pre Op Diagnosis: Skin Laxity Patient Data Age: 49 Gender: F Height: 1.65 m Weight: 86 kg Last Vital Signs Temp 36.2 C L 04/11/25 06:00 Pulse 64 04/11/25 06:00 BP 124/84 04/11/25 06:00 Pulse Ox 100 04/11/25 06:00 O2 Del Method Room Air 04/11/25 06:00 Allergies Allergy/AdvReac Type Severity Reaction Status Date / Time No Known Allergies Allergy Verified 04/11/25 06:25 Home Medications ?Medication ?Instructions ?Recorded ?Confirmed ?Type BIEST 04/07/25 History amlodipine 2.5 mg tablet 2.5 mg PO DAILY 04/07/25 04/11/25 History carisoprodol 350 mg tablet 350 mg PO QID PRN muscle pain 04/07/25 04/07/25 History celecoxib 200 mg capsule 200 mg PO Q24H PRN pain 04/07/25 04/07/25 History thiamine HCl (vitamin B1) 50 mg 50 mg PO DAILY 04/07/25 04/11/25 History tablet (Vitamin B-1) tirzepatide 7.5 mg/0.5 mL 7.5 mg subcut WEEKLY 04/07/25 04/07/25 History subcutaneous pen injector (Mounjaro) vitamin B complex (Complex B-100 1 tablet PO DAILY 04/07/25 04/11/25 History tablet,extended release) Laboratory Tests 04/11/25 06:48 Cotinine Pending Patient hx anesthesia problems: none Family hx anesthesia problems: none Results Review: All pre-operative results and documents have been reviewed as part of the pre-operative evaluation. [facility] Social History Social History Smoking status: Never smoker Alcohol intake: current Alcohol use details: social drinking may 1/month or less Living arrangements: with family Spiritual care concerns: No Anes - Eval Final PreProcedure Day of Procedure 04/11/25 07:07 Patient weight: obese Heart: regular rate and rhythm Lungs: clear to auscultation Airway: Mallampati scale class II Neurological: alert and oriented Last oral intake: >/= 8 hours ASA classification: III Emergent: no Anesthetic plan: proceed Anesthesia type and monitoring: general ETT and standard monitoring Results Review: All pre-operative results and documents have been reviewed as part of the pre-operative evaluation. Informed Consent: The patient's anesthetic plan and its attendant risks and benefits were discussed with the patient/family/POA. Questions were solicited and answers provided to the satisfaction of the patient/family/POA.
[2025-04-11] MEDS: SCOPOLAMINE 1 MG PATCH 1 PATCH TRANSDERM (07:13)
--- NOTE | 2025-04-11 07:21 | P.OP_ITS ---
Procedure Note - Detailed Date of Procedure 04/11/25 Pre-op Diagnosis Skin Laxity Post-op Diagnosis Same Procedure Performed Belt lipectomy with suction lipectomy Surgeon Davin Abad MD Anesthesia General Findings Lipoaspirate: 1,400 cc Tissue removed: 3,021.2 grams There were 2 slightly dark, enlarged nodes noted along he abdominoplasty incision (right and left). Due to abnormal appearance and out of an abundance of caution these were sent to pathology. Description of Procedure They are here today for the above procedures. Previously and again today the risks, benefits, alternatives were discussed in extensive detail. I wanted them to be very realistic about the risks involved as well as expectations. We discussed aftercare and what to monitor for. I was very upfront about the risks of wound breakdown leading to loss of skin, open wounds, and need for additional procedures with permanent abdominal deformity. There was significant discussion regarding cardiac workup in the past and she saw a second guide dog mobility instructor on Monday as well for a second opinion that provided clearance. She declines dblul-fo-rmt and bra roll excision both of which she understands could improve overall appearance and will limit outcomes. We discussed DVT/PE risks and management. Made sure answered all of their questions to their satisfaction today and consent was obtained. They were marked in the preoperative holding area with their verification. The patient was taken to the operating room. Anesthesia was provided by anesthesiology. A Montes catheter was started. Posterior Placed prone on the operating room table with care taken to protect from injury. Prepped and draped in a standard sterile fashion. A surgical time-out was taken. Stab incisions were made and tumescent solution was infiltrated. Once adequate time was allowed for hemostasis a 5mm basket and 4mm harsha cannula were utilized to complete suction lipectomy based on S.A.F.E. technique in multiple planes and passes. Suction lipectomy continued to result based on pre-operative planning, intra-operative observation, and rolling pinch test which were in full agreement. A 10 blade was used to make the upper incision and dissection was continued inferior elevating what we necessary for closure. I placed patient in slight jackknife position and excised intervening tissue. 15 Carlos drain placed (and temporarily buried). This was closed with 3 point suture with 2-0 Vicryl followed 2-0 PDO strattafix, 3-0 stratafix ,running subcuticular 4-0 Monocryl, and tissue glue. Laterally eugenio were placed for turning. Anterior Patient was then placed supine with care taken to protect from injury. I placed the patient in a flexed position to verify the upper and lower markings would reach. I then placed supine. A thorough abdominal examination was completed. Stab incisions were made and tumescent solution infiltrated. Stab incisions were made and tumescent solution was infiltrated. Once adequate time was allowed for hemostasis a 5mm basket and 4mm harsha cannula were utilized to complete suction lipectomy based on S.A.F.E. technique in multiple planes and passes. Suction lipectomy continued to result based on pre-operative planning, intra-operative observation, and rolling pinch test which were in full agreement. A 10 blade was used to make the upper incision. I continued dissection down to the level of fascia. Elevated just what was necessary for repair of the diastasis. I then again flexed the bed to verify the upper skin flap would reach the lower markings without tension. Once verified I placed her supine once again and a 10 blade used to make the lower incision. I elevated up to level the umbilicus and left the umbilicus intact on a well-vascularized stalk. The intervening tissue was removed. A 2 mm blunt cannula with 0.5% bupivacaine was injected deep to the fascia bilaterally. I plicated the diastasis recti using 0 PDO Stratafix barbed suture. This was in 2 separate layers using 2 separate sutures as well. Along the lower incision there were two enlarged notes with darkened apperance (see findings). These were removed and sent to pathology. The patient was flexed and starting from superior to inferior began plication using 2-0 Vicryl to obliterate all space in a standard progressive tension fashion. At the umbilicus I marked out the location of the skin and inset this with 3-0 Monocryl and 4-0 Vicryl. I continued the remainder of the plication using 2-0 Vicryl until I reached my lower planned scar line. I trimmed any excess skin of the upper flap making sure this was a tension-free closure. I then approximated using a 3 point suture with 2-0 Vicryl (bringing the drain out lateral) followed by 2-0 PDO Stratafix, 3-0 Stratafix ,running subcuticular 4-0 Monocryl, and tissue glue. Fluffs and an abdominal binder were placed. The patient was transferred to the bed in a flexed position. [place] and taken to the PACU without difficulty. All instrument and sponge counts were correct at the end of the case. Estimated Blood Loss 75 Drains Yes (15 Carlos) Packing No Pathology None sent Condition Stable Disposition PACU
[2025-04-11] MEDS: BUPIVACAINE/EPINEPHRINE 0.5% 30 ML VIAL 60 ML INFILTRATE (07:33)
[2025-04-11] MEDS: ceFAZolin 2 GM in SODIUM CHLORIDE 0.9% IV 50 ML 100 ML IVPB (07:33)
[2025-04-11] MEDS: LACTATED RINGERS IRRIG 1,000 ML, LIDOCAINE 1% LOCAL INJ 50 ML, EPINEPHrine HCL INJ 1 MG... INFILTRATE (07:33)
--- NOTE | 2025-04-11 10:48 | S_PTH ---
PATIENT: Mohini Waterman LOC: [facility] U#:[id number] AGE/SX: 49/F ROOM: RE04/11/[address]: Davin Abad MD : 1975 BED: DIS: 04/11/2025 SPEC #: [id number] RECD: 04/11/25 10:56 STATUS: DINORA REQ #: [id number] MOIZ: 04/11/25 10:[address]: Davin Abad DEPT: [facility] Surgical RECD BY: Amara Shabazz ENTERED: 04/11/25 10:56 SP TYPE: Surgical OTHR DR: Nohemi GlassMD Tissues: A - Lymph Node B - Lymph Node Procedures: Hematoxylin and Eosin Stain Gross and Microscopic Level 4
[2025-04-11] MEDS: fentaNYL CITRATE INJ (*CRX) 100 MCG/2 ML VIAL 25 MCG IV PUSH ×3 (13:30→14:15)
[2025-04-11] MEDS: oxyCODONE HCL (*CRX) 5 MG TAB IR PO (15:00)
== END 2025-04-11 15:20 | disposition home or self-care (01) ==
PROVIDERS: PCP Internal Medicine; Visit Provider Surgery Plastic and Reconstructive Surgery
PROC: (CPT 15877; principal; 2025-04-11 07:30)
DX: Z41.1 Encounter for cosmetic surgery (principal); L57.4 Cutis laxa senilis; D76.3 Other histiocytosis syndromes; I10 Essential (primary) hypertension; E78.00 Pure hypercholesterolemia, unspecified; I25.10 Atherosclerotic heart disease of native coronary artery without angina pectoris; E66.9 Obesity, unspecified; Z68.31 Body mass index [BMI] 31.0-31.9, adult; Z79.84 Long term (current) use of oral hypoglycemic drugs; Z79.1 Long term (current) use of non-steroidal anti-inflammatories (NSAID); Z79.85 Long-term (current) use of injectable non-insulin antidiabetic drugs; Z98.84 Bariatric surgery status
CPT/HCPCS: 15877; 15830; 15847; 15839; 80307; 88305; J0690; A9270; J0166; J0616; J1171; J2003; J2250; J2405; J2704; J3010; J3290; J7120